=== PATIENT | male | born 1955 | race Caucasian/White ===

== ENCOUNTER 2018-08-08 07:14 | Inpatient (IN) | payer OTHER, MEDICAID, MEDICARE ==
[2018-08-08] MEDS: MORPHINE 2 MG/ML 1ML SYRINGE (J2270) IV (08:19)
[2018-08-08] MEDS: NS 1,000 ML IV ×4 (08:19→20:45)
[2018-08-08] MEDS: ONDANSETRON 4MG/2ML VIAL (J2405) IV (08:19)
[2018-08-08 08:21] LABS: BASO # 0.1 10^3/uL (0.0-0.2); BASO % 0.4 % (0.0-1.0); EOS % 0.2 % (0.0-3.0); HEMATOCRIT 47.8 % (42.0-52.0); HEMOGLOBIN 15.8 g/dl (13.5-17.5); IMMATURE GRANULOCYTE % 0.4 % (0-3.0); LYMPH # 0.6 10^3/uL (1.5-4.5); LYMPH % 3.6 % (24.0-44.0); MEAN CORPUSCULAR HEMOGLOBIN 30.7 pg (27.0-33.0); MEAN CORPUSCULAR HGB CONC 33.1 g/dl (32.0-36.5); MONO % 5.8 % (0.0-5.0); NEUTROPHILS # 14.7 10^3/uL (1.8-7.7); NEUTROPHILS % 89.6 % (36.0-66.0); PLATELET COUNT, AUTOMATED 142 10^3/uL (150-450); RED BLOOD COUNT 5.14 10^6/uL (4.30-6.10); RED CELL DISTRIBUTION WIDTH 12.5 % (11.5-14.5); WHITE BLOOD COUNT 16.4 10^3/uL (4.0-10.0)
[2018-08-08 08:27] LABS: KETONE, URINE AUTO RFX 2+ mg/dL (NEGATIVE); LEUKOCYTE ESTERASE UR AUTO RFX NEGATIVE (NEGATIVE); MUCUS, URINE RFX MODERATE (NEGATIVE); NITRITE, URINE AUTO RFX NEGATIVE (NEGATIVE); RBC, URINE AUTO RFX 2 /HPF (0-3); SPECIFIC GRAVITY UR AUTO RFX 1.024 (1.002-1.035); SQUAM EPITHELIAL CELL UR AURFX 0 /HPF (0-6); WBC, URINE AUTO RFX 1 /HPF (0-3)
[2018-08-08 08:46] LABS: INR 0.96; PROTHROMBIN TIME 12.9 SECONDS (12.1-14.4)
[2018-08-08 08:52] LABS: PARTIAL THROMBOPLASTIN TIME 26.4 SECONDS (25.4-37.6)
[2018-08-08 08:56] LABS: ALBUMIN 3.7 GM/DL (3.2-5.2); ALBUMIN/GLOBULIN RATIO 1.19 (1.00-1.93); ALKALINE PHOSPHATASE 76 U/L (45-117); ALT/SGPT 17 U/L (12-78); AMYLASE 46 U/L (25-115); ANION GAP 9 MEQ/L (8-16); AST/SGOT 11 U/L (7-37); BILIRUBIN,DIRECT 0.3 MG/DL (0.0-0.2); BILIRUBIN,TOTAL 0.7 MG/DL (0.2-1.0); BLOOD UREA NITROGEN 14 MG/DL (7-18); CALCIUM LEVEL 9.1 MG/DL (8.8-10.2); CARBON DIOXIDE LEVEL 28 MEQ/L (21-32); CHLORIDE LEVEL 100 MEQ/L (98-107); CPK CREATINE PHOSPHOKINASE 66 U/L (39-308); GLOMERULAR FILTRATION RATE > 60.0 (>49); GLUCOSE, FASTING 131 MG/DL (70-100); LIPASE 259 U/L (73-393); MB/CK RELATIVE INDEX 2.42 (< OR =4); POTASSIUM SERUM 4.2 MEQ/L (3.5-5.1); SODIUM LEVEL 137 MEQ/L (136-145); TOTAL PROTEIN 6.8 GM/DL (6.4-8.2); TROPONIN I < 0.02 NG/ML (< 0.10)
[2018-08-08 08:58] LABS: LACTIC ACID SEPSIS PROTOCOL 1.4 MMOL/L (0.4-2.0)
[2018-08-08] MEDS ORDERED: ISOVUE-370 76% 100ML VIAL (Q9967) As Ordered (10:02)
[2018-08-08] MEDS: MORPHINE 4 MG/ML 1ML VIAL/SYRINGE (J2270) IV ×3 (10:19→20:45)
[2018-08-08] MEDS ORDERED: ONDANSETRON 4MG/2ML VIAL (J2405) IV (11:15)
[2018-08-08] MEDS: ACETAMINOPHEN TAB 650MG DOSE (2X325MG) PO (14:48)
[2018-08-08] MEDS: ENOXAPARIN 40 MG/0.4 ML SYRINGE (J1650) SC (14:49)
[2018-08-08] MEDS ORDERED: IPRATROPIUM 0.5MG/ALBUTEROL 2.5MG INH SOL UD 3ML (DUONEB)(J7620) NEB (16:15)
[2018-08-08] MEDS: LISINOPRIL 20 MG TAB PO (16:43)
[2018-08-08] MEDS: MONTELUKAST 10 MG TAB PO (16:43)
[2018-08-08] MEDS: ATORVASTATIN 20 MG TAB PO (16:43)
[2018-08-08] MEDS: ALLOPURINOL 300 MG TAB PO (16:43)
[2018-08-08] MEDS: ADVAIR HFA 230/21MCG INHALER INH (20:03)
[2018-08-09] MEDS: SENNA 8.6 MG TAB (SENOKOT) PO (02:48)
[2018-08-09] MEDS: NS 1,000 ML IV ×2 (02:48→08:41)
[2018-08-09] MEDS: MORPHINE 4 MG/ML 1ML VIAL/SYRINGE (J2270) IV ×4 (02:48→20:26)
[2018-08-09 06:33] LABS: HEMATOCRIT 44.6 % (42.0-52.0); HEMOGLOBIN 14.5 g/dl (13.5-17.5); MEAN CORPUSCULAR HGB CONC 32.5 g/dl (32.0-36.5); MEAN CORPUSCULAR VOLUME 95.3 fl (80.0-96.0); PLATELET COUNT, AUTOMATED 129 10^3/uL (150-450); RED BLOOD COUNT 4.68 10^6/uL (4.30-6.10); RED CELL DISTRIBUTION WIDTH 12.6 % (11.5-14.5); WHITE BLOOD COUNT 15.6 10^3/uL (4.0-10.0)
[2018-08-09 07:00] LABS: ANION GAP 4 MEQ/L (8-16); BLOOD UREA NITROGEN 14 MG/DL (7-18); CARBON DIOXIDE LEVEL 33 MEQ/L (21-32); CHLORIDE LEVEL 102 MEQ/L (98-107); CREATININE FOR GFR 0.66 MG/DL (0.70-1.30); GLOMERULAR FILTRATION RATE > 60.0 (>49); GLUCOSE, FASTING 119 MG/DL (70-100); LIPASE 86 U/L (73-393); POTASSIUM SERUM 4.2 MEQ/L (3.5-5.1); SODIUM LEVEL 139 MEQ/L (136-145)
[2018-08-09] MEDS: ADVAIR HFA 230/21MCG INHALER INH ×2 (07:24→20:17)
[2018-08-09 07:31] LABS: ALBUMIN/GLOBULIN RATIO 0.83 (1.00-1.93); ALKALINE PHOSPHATASE 63 U/L (45-117); ALT/SGPT 12 U/L (12-78); AST/SGOT 7 U/L (7-37); BILIRUBIN,DIRECT 0.2 MG/DL (0.0-0.2); BILIRUBIN,TOTAL 0.5 MG/DL (0.2-1.0); TOTAL PROTEIN 6.6 GM/DL (6.4-8.2)
[2018-08-09] MEDS: ENOXAPARIN 40 MG/0.4 ML SYRINGE (J1650) SC (08:41)
[2018-08-09] MEDS: ALLOPURINOL 300 MG TAB PO (08:45)
[2018-08-09] MEDS: LISINOPRIL 20 MG TAB PO (08:45)
[2018-08-09] MEDS: ATORVASTATIN 20 MG TAB PO (08:45)
[2018-08-09] MEDS: PREVNAR 13 VACCINE SYRINGE (CPT CODE:90670) IM (08:49)
[2018-08-09] MEDS: MONTELUKAST 10 MG TAB PO (08:50)
[2018-08-09] MEDS: FLUBLOK(EGG FREE)(QUAD)INFLUENZA VACC 0.5ML SYRINGE (90682)18YRS&OLDER IM (08:50)
[2018-08-10] MEDS: SENNA 8.6 MG TAB (SENOKOT) PO (00:44)
[2018-08-10 06:25] LABS: HEMATOCRIT 45.2 % (42.0-52.0); HEMOGLOBIN 14.7 g/dl (13.5-17.5); MEAN CORPUSCULAR HEMOGLOBIN 30.9 pg (27.0-33.0); MEAN CORPUSCULAR HGB CONC 32.5 g/dl (32.0-36.5); PLATELET COUNT, AUTOMATED 143 10^3/uL (150-450); RED BLOOD COUNT 4.76 10^6/uL (4.30-6.10); RED CELL DISTRIBUTION WIDTH 12.5 % (11.5-14.5); WHITE BLOOD COUNT 11.3 10^3/uL (4.0-10.0)
[2018-08-10 06:52] LABS: ALBUMIN 2.8 GM/DL (3.2-5.2); ALBUMIN/GLOBULIN RATIO 0.72 (1.00-1.93); ALKALINE PHOSPHATASE 62 U/L (45-117); ALT/SGPT 13 U/L (12-78); ANION GAP 4 MEQ/L (8-16); AST/SGOT 10 U/L (7-37); BILIRUBIN,DIRECT 0.2 MG/DL (0.0-0.2); BILIRUBIN,TOTAL 0.6 MG/DL (0.2-1.0); BLOOD UREA NITROGEN 16 MG/DL (7-18); CALCIUM LEVEL 8.8 MG/DL (8.8-10.2); CARBON DIOXIDE LEVEL 36 MEQ/L (21-32); CHLORIDE LEVEL 99 MEQ/L (98-107); CREATININE FOR GFR 0.72 MG/DL (0.70-1.30); GLOMERULAR FILTRATION RATE > 60.0 (>49); GLUCOSE, FASTING 121 MG/DL (70-100); LIPASE 39 U/L (73-393); MAGNESIUM LEVEL 1.9 MG/DL (1.8-2.4); POTASSIUM SERUM 4.4 MEQ/L (3.5-5.1); SODIUM LEVEL 139 MEQ/L (136-145); TOTAL PROTEIN 6.7 GM/DL (6.4-8.2)
[2018-08-10] MEDS: amLODIPine 10 MG TAB PO (08:42)
[2018-08-10] MEDS: ENOXAPARIN 40 MG/0.4 ML SYRINGE (J1650) SC (08:42)
[2018-08-10] MEDS: ATORVASTATIN 20 MG TAB PO (08:42)
[2018-08-10] MEDS: LISINOPRIL 20 MG TAB PO (08:42)
[2018-08-10] MEDS: MONTELUKAST 10 MG TAB PO (08:42)
[2018-08-10] MEDS: ALLOPURINOL 300 MG TAB PO (08:42)
[2018-08-10] MEDS: ADVAIR HFA 230/21MCG INHALER INH ×2 (09:28→19:51)
[2018-08-10] MEDS: ACETAMINOPHEN TAB 650MG DOSE (2X325MG) PO (21:46)
[2018-08-11 07:07] LABS: HEMATOCRIT 46.7 % (42.0-52.0); HEMOGLOBIN 15.1 g/dl (13.5-17.5); MEAN CORPUSCULAR HEMOGLOBIN 30.8 pg (27.0-33.0); MEAN CORPUSCULAR HGB CONC 32.3 g/dl (32.0-36.5); MEAN CORPUSCULAR VOLUME 95.3 fl (80.0-96.0); PLATELET COUNT, AUTOMATED 167 10^3/uL (150-450); RED CELL DISTRIBUTION WIDTH 12.6 % (11.5-14.5); WHITE BLOOD COUNT 6.8 10^3/uL (4.0-10.0)
[2018-08-11] MEDS: ADVAIR HFA 230/21MCG INHALER INH (07:17)
[2018-08-11 07:33] LABS: ANION GAP 6 MEQ/L (8-16); BLOOD UREA NITROGEN 19 MG/DL (7-18); CALCIUM LEVEL 8.8 MG/DL (8.8-10.2); CARBON DIOXIDE LEVEL 34 MEQ/L (21-32); CHLORIDE LEVEL 99 MEQ/L (98-107); GLOMERULAR FILTRATION RATE > 60.0 (>49); GLUCOSE, FASTING 111 MG/DL (70-100); LIPASE 30 U/L (73-393); MAGNESIUM LEVEL 1.9 MG/DL (1.8-2.4); POTASSIUM SERUM 3.6 MEQ/L (3.5-5.1); SODIUM LEVEL 139 MEQ/L (136-145)
[2018-08-11] MEDS: MONTELUKAST 10 MG TAB PO (09:46)
[2018-08-11] MEDS: ATORVASTATIN 20 MG TAB PO (09:46)
[2018-08-11] MEDS: LISINOPRIL 20 MG TAB PO (09:47)
[2018-08-11] MEDS: PERCOCET 5MG/325MG TAB PO (09:47)
[2018-08-11] MEDS: ALLOPURINOL 300 MG TAB PO (09:47)
[2018-08-11] MEDS: amLODIPine 10 MG TAB PO (09:47)
[2018-08-11] MEDS: ENOXAPARIN 40 MG/0.4 ML SYRINGE (J1650) SC (09:48)
== END 2018-08-11 13:29 | disposition home or self-care (01) | DRG 282 ==
LOC: M ED 07:14 → M ED INP 11:07 → M MSPAV 14:03
DX: K85.90 Acute pancreatitis without necrosis or infection, unspecified (principal); J44.9 Chronic obstructive pulmonary disease, unspecified; I10 Essential (primary) hypertension; E78.5 Hyperlipidemia, unspecified; M10.9 Gout, unspecified; F17.210 Nicotine dependence, cigarettes, uncomplicated; Z90.49 Acquired absence of other specified parts of digestive tract; Z92.21 Personal history of antineoplastic chemotherapy; Z92.3 Personal history of irradiation; Z79.1 Long term (current) use of non-steroidal anti-inflammatories (NSAID); Z79.899 Other long term (current) drug therapy; Z85.048 Personal history of other malignant neoplasm of rectum, rectosigmoid junction, and anus

== ENCOUNTER 2019-07-06 09:55 | Emergency (ER) | payer MEDICARE, OTHER ==
[~2019-07-06] VITALS: Ht 185.4 cm; Wt 120.5 kg
[~2019-07-06 09:55] MED LIST: ALBUTEROL INH; ALLO100T OR; AMLO2.5T3 PO; ATOR1TAB21 PO; AVEL1TAB2 OR; BREO1INH INH; BREO1INH PO; CELE1CAP4 OR; COMBVENT INH; LIPI20TA OR; LISI-538 PO; MONT10TA2 PO; NAPR-885 PO; NICO21DI4 TD; PRED10TA2 OR; PRED20TA OR; SKEL800T5 OR; VENTAER INH; ZYLO300T6 PO
[2019-07-06] MEDS ORDERED: LISI40TA (10:03)
[2019-07-06] MEDS ORDERED: TIZA4TAB4 (10:03)
[2019-07-06] MEDS ORDERED: NS 1,000 ML IV SCH (10:36)
[2019-07-06] MEDS ORDERED: ONDANSETRON 4MG/2ML VIAL (J2405) IV ONE (10:45)
[2019-07-06 11:14] LABS: BASO # 0.1 10^3/uL (0.0-0.2); BASO % 0.4 % (0.0-1.0); EOS # 0.1 10^3/uL (0.0-0.5); EOS % 0.7 % (0.0-3.0); HEMATOCRIT 48.4 % (42.0-52.0); HEMOGLOBIN 16.1 g/dl (13.5-17.5); LYMPH # 0.7 10^3/uL (1.5-5.0); LYMPH % 5.8 % (24.0-44.0); MEAN CORPUSCULAR HEMOGLOBIN 31.6 pg (27.0-33.0); MEAN CORPUSCULAR HGB CONC 33.3 g/dl (32.0-36.5); MEAN CORPUSCULAR VOLUME 95.1 fl (80.0-96.0); MONO # 0.7 10^3/uL (0.0-0.8); MONO % 5.6 % (0.0-5.0); NEUTROPHILS # 10.7 10^3/uL (1.5-8.5); NEUTROPHILS % 87.1 % (36.0-66.0); PLATELET COUNT, AUTOMATED 149 10^3/uL (150-450); RED BLOOD COUNT 5.09 10^6/uL (4.30-6.10); WHITE BLOOD COUNT 12.3 10^3/uL (4.0-10.0)
[2019-07-06] MEDS: MORPHINE 4 MG/ML 1ML VIAL/SYRINGE (J2270) IV PRN ×2 (11:22→12:03)
[2019-07-06 11:36] LABS: ALBUMIN 3.5 GM/DL (3.2-5.2); BILIRUBIN,DIRECT 0.2 MG/DL (0.0-0.2); BILIRUBIN,TOTAL 0.6 MG/DL (0.2-1.0); TOTAL PROTEIN 6.5 GM/DL (6.4-8.2)
[2019-07-06] MEDS ORDERED: ISOVUE-370 76% 100ML VIAL (Q9967) As Ordered ONE (11:39)
--- NOTE | 2019-07-06 12:41 | REP ---
CT ABDOMEN AND PELVIS WITH IV WITHOUT ORAL CONTRAST: HISTORY: Abdomen pain. The patient gives a history of colorectal carcinoma status post colon resection. Comparison CT study August 08, 2018. CT CONTRAST DOSE: 100 mL of intravenous Isovue [address] FINDINGS: Preliminary diaper machine tender radiograph shows an unremarkable bowel gas pattern. Lung bases are clear. Liver and spleen remain normal in size homogeneous in texture. No adrenal lesion is seen. The kidneys enhance symmetrically and are morphologically intact. No pancreatic abnormality is visible today. There is a 3.9 cm infrarenal abdominal aortic aneurysm again noted unchanged There is evidence of a colonic anastomosis at the level of the rectum suggesting previous the left colon resection and reanastomosis. There is extensive diverticulosis in the distal left colon and to some degree in the descending colon. There is a prominent new pattern of mural thickening and pericolonic fat streaking affecting the proximal colon from cecum through to the splenic flexure consistent with enterocolitis. There is no evidence of free air or abscess. Small bowel loops are unremarkable. Prostate, seminal vesicles and urinary bladder are unremarkable. IMPRESSION: Moderate new pattern of mural thickening involving the right colon from cecum to the splenic flexure region. Enterocolitis picture. Status post left colon resection. A 3.9 cm infrarenal abdominal aortic aneurysm unchanged. Electronically Signed by Jaswant Hernandes MD 07/06/2019 01:02 P
[2019-07-06 14:00] VITALS: BP 164/89
--- NOTE | 2019-07-06 20:32 | ECGEPIP ---
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
== END 2019-07-06 14:12 | disposition home or self-care (01) ==
LOC: M ED 09:55
DX: K52.9 Noninfective gastroenteritis and colitis, unspecified (principal); I10 Essential (primary) hypertension; E78.5 Hyperlipidemia, unspecified; Z85.048 Personal history of other malignant neoplasm of rectum, rectosigmoid junction, and anus; Z92.21 Personal history of antineoplastic chemotherapy; Z92.3 Personal history of irradiation; F17.200 Nicotine dependence, unspecified, uncomplicated; Z79.899 Other long term (current) drug therapy; Z79.51 Long term (current) use of inhaled steroids; Z79.1 Long term (current) use of non-steroidal anti-inflammatories (NSAID)
CPT/HCPCS: 74177; 80047; 80076; 83690; 85025; 93005; 96361; 96374; 96375; 96376; 99284; J2270; J2405; Q9967

== ENCOUNTER → 2020-08-01 | Outpatient (CLI) | payer MEDICARE, MEDICAID ==
[~2020-08-01] MED LIST changes: +BREO1INH3 INH; +LISI40TA PO; -MONT10TA2 PO; +MONT10TA4 PO; +NORV5TAB PO; +TIZA4TAB4
--- NOTE | 2020-08-06 08:10 | REP ---
CT CHEST WITHOUT CONTRAST: LOW-DOSE SCREENING EXAM HISTORY: Tobacco use. Current smoker. COMPARISON: Chest x-ray from 08/08/2018. No comparison chest CT study. CT FINDINGS: Preliminary digital spray mixer radiograph unremarkable. Exam is positive. There are multiple abnormalities, the most compelling of which is a 4.3 x 2.9 cm spiculated mass adjacent to the posteromedial pleura of the right lower lobe. There is no evidence of pleural effusion. In addition, there are multiple subcentimeter pulmonary nodules. These include a right upper lobe nodule measuring 0.8 cm in diameter in the apex on Page 9 of 103 in Series 201 of todays exam. There is a 3-mm nodule in the left upper lobe on Page 19. There is a 5-mm nodule in the left lower lobe and a 3-mm nodule in the right lower lobe both of which project on Page 30. No other abnormality is appreciated. IMPRESSION: Lung-RADS Category 4X findings. Suspicious right lower lobe lung mass. Recommend PET CT scanning and histologic sampling. This could be done by CT-guided needle biopsy if desired. There are also multiple subcentimeter noncalcified pulmonary nodules bilaterally. MTDD
== END ==
LOC: M RAD 12:48
PROVIDERS: ATTEND Family Medicine
DX: F17.218 Nicotine dependence, cigarettes, with other nicotine-induced disorders (principal); R91.1 Solitary pulmonary nodule

== ENCOUNTER 2021-01-23 07:19 | Inpatient (IN) | payer MEDICARE, MEDICAID ==
[~2021-01-23] VITALS: Ht 185.4 cm; Wt 129.1 kg
[~2021-01-23 07:19] MED LIST changes: -LISI-538 PO; +LISI20TA33 PO; -LISI40TA PO; +LISI40TA4 PO; +MONT10TA10 PO; -MONT10TA4 PO
[2021-01-23] MEDS ORDERED: DOXY100T PO (07:42)
[2021-01-23] MEDS ORDERED: TIZA4TAB4 PO (07:42)
[2021-01-23] MEDS ORDERED: ADVAIR HFA 230/21MCG INHALER INH SCH (08:00)
[2021-01-23] MEDS ORDERED: ISOVUE-370 76% 100ML VIAL As Ordered ONE (08:58)
[2021-01-23 09:04] LABS: APPEARANCE, URINE HAZY (CLEAR); BACTERIA, URINE AUTO NEGATIVE (NEGATIVE); BILIRUBIN, URINE AUTO NEGATIVE (NEGATIVE); BLOOD, URINE BLOOD NEGATIVE (NEGATIVE); COLOR, URINE AMBER (YELLOW); GLUCOSE, URINE (UA) AUTO NEGATIVE (NEGATIVE); KETONE, URINE AUTO NEGATIVE (NEGATIVE); LEUKOCYTE ESTERASE, URINE AUTO NEGATIVE (NEGATIVE); MUCUS, URINE SMALL (NEGATIVE); NITRITE, URINE AUTO NEGATIVE (NEGATIVE); PROTEIN, URINE AUTO 1+ mg/dL (NEGATIVE); RBC, URINE AUTO 2 /HPF (0-3); SPECIFIC GRAVITY URINE AUTO 1.027 (1.002-1.035); SQUAMOUS EPITHELIAL CELL UR AU 0 /HPF (0-6); WBC, URINE AUTO 1 /HPF (0-3)
[2021-01-23 09:07] LABS: BASO # 0.1 10^3/uL (0.0-0.2); BASO % 0.6 % (0.0-1.0); EOS # 0.1 10^3/uL (0.0-0.5); EOS % 0.7 % (0.0-3.0); HEMATOCRIT 49.8 % (42.0-52.0); HEMOGLOBIN 15.6 g/dl (13.5-17.5); LYMPH # 0.7 10^3/uL (1.5-5.0); MEAN CORPUSCULAR HEMOGLOBIN 30.8 pg (27.0-33.0); MEAN CORPUSCULAR HGB CONC 31.3 g/dl (32.0-36.5); MEAN CORPUSCULAR VOLUME 98.4 fl (80.0-96.0); MONO # 0.8 10^3/uL (0.0-0.8); MONO % 9.6 % (2.0-8.0); NEUTROPHILS % 80.8 % (36.0-66.0); PLATELET COUNT, AUTOMATED 128 10^3/uL (150-450); RED BLOOD COUNT 5.06 10^6/uL (4.30-6.10); WHITE BLOOD COUNT 8.7 10^3/uL (4.0-10.0)
--- NOTE | 2021-01-23 09:37 | REP ---
INDICATION: cellulitis ?abscess. COMPARISON: None. TECHNIQUE: Bolus of 75 mL Isovue 370 scanning through the maxillofacial region with coronal and sagittal reconstructions presented in soft tissue and bone window settings. FINDINGS: There is extensive soft tissue swelling in the periorbital soft tissues bilaterally right greater than left. This is all preseptal with the intraconal fat, globes and intraorbital contents all normal. The skin in the supraorbital ridges extending peripherally into the temporal regions shows thickening and edema. I see no subcutaneous emphysema. Some involvement of the malar region infraorbital left greater than right. The patient is edentulous. There is a 2.3 x 2.3 x 1.8 cm mucous retention cyst in the floor the left maxillary antrum with the other sinuses entirely clear. Nasal septal deviation towards the left is noted. The ostiomeatal complexes are patent. There are small Dayron cells bilaterally. Sandra bullosa in the middle turbinates with the right greater than left. Mastoid symmetric and normal. Nasal bones, zygomatic arches, orbital floors, sinus parsons and visualized portions of the skull base unremarkable patient is edentulous. The nasopharyngeal airway, oropharynx and visualized hypopharynx are unremarkable. No abnormal thickening of the adenoid pad. A portion of intracranial contents visualized were unremarkable in the basal cisterns intact. Visualized old lateral 3rd and 4th ventricles are unremarkable there is no cerebellar tonsillar ectopia. Some degenerative changes at the C1-2 articulation of dens and anterior arch of C1 but no destructive lesions or fractures of the craniocervical junction. The pr I had and submandibular glands are unremarkable some scattered small nodes in the neck and anterior cervical chain but no pathologic sized adenopathy. IMPRESSION: 1. Preseptal periorbital cellulitis right greater than left but extending over the super of a ridge for at and into the temporal regions. I do not see definite abscess and there is no subcutaneous air. Intraorbital fat and contents normal. 2. Patient is edentulous and there is a mucous retention cyst in the left maxillary antrum 2.3 x 2.3 x 1.8 cm. Mastoids intact. All the other sinuses are clear. Airway intact. No adenopathy. <Electronically signed by Leander Alas > 01/23/21 0919
[2021-01-23 09:39] LABS: ALBUMIN 3.1 GM/DL (3.2-5.2); ALT/SGPT 15 U/L (12-78); BILIRUBIN,DIRECT < 0.1 MG/DL (0.0-0.2); BILIRUBIN,TOTAL 0.3 MG/DL (0.2-1.0); TOTAL PROTEIN 6.3 GM/DL (6.4-8.2)
[2021-01-23] MEDS ORDERED: VANCOMYCIN HCL 2,000 MG in D5W 500 ML IV ONE (10:05)
[2021-01-23] MEDS ORDERED: VANCOMYCIN HCL 1,000 MG, VIAL MATE ADAPTER 1 EACH in NS 250 ML IV ONE ×6 (10:20)
[2021-01-23] MEDS ORDERED: ACETAMINOPHEN TAB 650MG DOSE (2X325MG) PO PRN (10:25)
[2021-01-23] MEDS ORDERED: ALBUTEROL 90 MCG/ACT 8GM HFA INHALER INH PRN (10:25)
--- NOTE | 2021-01-23 12:08 | HPEPDOC ---
[facility] Medical History & Physical Date of Admission Jan 23, 2021 Date of Service: Jan 23, 2021 Attending Physician: Leslee eDe MD History and Physical CHIEF COMPLAINT: facial swelling HISTORY OF PRESENT ILLNESS: Patient is a 65-year-old male with PMH of rectal cancer status post chemotherapy and radiation (2015), COPD, tobacco use, hyperlipidemia, hypertension, gout history, chronic back pain secondary to degenerative disc disease, osteoarthritis who presented to [facility] emergency room for increased facial cellulitis since 01/18/2021. The patient states he received his first Covid 19 vaccine on 01/16/2021. He had very little postvaccination symptoms only including some left arm muscle pain. That following Wednesday on 01/18/2021 the patient began feeling some tightness behind his left ear. He noted increased redness and swelling which later extended over the last side of the head e xtending towards the 4 head. It eventually made its way to the right side of his face around his right ear and head and around both eyes. He saw his primary care provider on 329 who prescribed him doxycycline. He was compliant with this medication. He states the discomfort associated with this as "like a sunburn" and it being very "tight" and warm to touch. The patient denies seeing any type of lesions on the redness, history of shingles or herpes, exposure to people with recent infection, throat closing, tongue or mouth swelling, shortness of breath, chest pain, itching, oozing, fevers, chills, nausea, vomiting, diarrhea, recent changes in meds, recent change in diet, blurry vision, new detergent or soaps at home. The patient came to the emergency room today as his antibiotics were not seeming to improve his condition and it appeared worse. In the emergency room vital signs were stable. A CT maxillofacial with contrast showed: 1. Preseptal periorbital cellulitis right greater than left but extending over the super of a ridge for at and into the temporal regions, no definite abscess and there is no subcutaneous air. Labs were essentially unremarkable. Patient was started on IV vancomycin. Due to extensive cellulitis failing o/p treatment with oral antibiotics, patient was admitted for facial cellulitis, bilateral preseptal cellulitis requiring IV antibiotic treatment. REVIEW OF SYSTEMS: CONSTITUTIONAL: Denies lack of energy, unexplained weight gain or weight loss, loss of appetite, fever, night sweats EYES: Denies eye drainage, eye pain, visual changes, dry/irritated eye EARS, NOSE, MOUTH, THROAT: Denies difficulty hearing, ringing in ears, mouth sores, loose teeth, sore throat, facial numbness or pain NECK: Denies swollen glands CARDIOVASCULAR: Denies irregular heartbeat, racing heart, chest pains, swelling of feet or legs, pain in legs with walking RESPIRATORY: Denies shortness of breath, night sweats, wheezing, sputum production, oxygen at home, coughing up blood, cough lasting > 1 month GASTROINTESTINAL: Denies abdominal pain, constipation, bloody stool, diarrhea, heartburn, nausea, vomiting GENITOURINARY: Denies painful urination, bloody urine, frequent urination, urgency, leaking urine, impotence MUSCULOSKELETAL: Denies joint pain, muscle pain, leg swelling INTEGUMENTARY: Denies itching, change in existing skin lesion, hair loss or increase, breast changes. NEUROLOGICAL: Denies headaches, dizziness, difficulty walking, numbness or tingling PSYCHIATRIC: Denies depression, anxiety, recurrent bad thoughts, mood swings, hallucinations PAST MEDICAL HISTORY: rectal cancer status post chemotherapy and radiation (2016), COPD, tobacco use, hyperlipidemia, hypertension, gout history, chronic back pain secondary to degenerative disc disease, osteoarthritis PAST SURGICAL HISTORY: Rectal surgery FAMILY HISTORY: Father: liver cirrhosis 2/2 to alcohol use. at 58 y/o Mother: CAD. at 43 y/o SOCIAL HISTORY: Smoker 1 pack per day for 40 years. Patient denies alcohol or drug use. His primary care provider's and [facility]. He follows with a heat treat puller Dr. Gray. He lives alone in the local area and is independent without a walker or cane. He is a full code. ALLERGIES: Please see below. HOME MEDICATIONS: Please see below. PHYSICAL EXAMINATION: VS: Please see below CONSTITUTIONAL: No acute distress, resting comfortably, AAO x 3 EYES: PERRLA, EOM intact, corrective lenses in place HENT, MOUTH: Please see under integumentary. Moist mucous membranes NECK: SUPPLE, no JVD, no lymphadenopathy, no carotid bruit CV: Regular rate and rhythm, S1S2 normal, no murmurs/rubs/gallops RESPIRATORY: Wheezing b/l, mild. no rales/rhonchi GI: BS positive in 4 quadrants, soft, nontender, nondistended, no rebound or guarding, no organomegaly : Deferred MUSCULOSKELETAL: Normal ROM. No cyanosis, clubbing, swelling, joint deformity, extremity edema INTEGUMENTARY: Redness, swelling, skin tightening across forehead, in areas on scalp b/l, behind right and left ear, around right and left eye. Fluid filled bullae under left and right eye, R>L. No open lesions to introduce infection. No lesions on erythematous base. All red areas are warm to touch, nontender. NEUROLOGIC: Cranial Nerves II-XII are intact, no focal deficits PSYCHIATRIC: Mood and affect are normal LABORATORY DATA: Please see below MICROBIOLOGY: BCx x 2 sets ordered UA neg Resp panel: Pending IMAGING: CT maxillofacial: 1. Preseptal periorbital cellulitis right greater than left but extending over the super of a ridge for at and into the temporal regions. I do not see definite abscess and there is no subcutaneous air. Intraorbital fat and contents normal. 2. Patient is edentulous and there is a mucous retention cyst in the left maxillary antrum 2.3 x 2.3 x 1.8 cm. Mastoids intact. All the other sinuses are clear. Airway intact. No adenopathy. ASSESSMENT: 65-year-old male with PMH of rectal cancer status post chemotherapy and radiation (2015), COPD, tobacco use, hyperlipidemia, hypertension, gout hist ory, chronic back pain secondary to degenerative disc disease, osteoarthritis admitted for facial cellulitis, bilateral preseptal cellulitis requiring IV antibiotic treatment. PLAN: Facial cellulitis, bilateral preseptal cellulitis -WBC wnl, afebrile, failed o/p abx treatment with doxycycline with extension of facial cellulitis -Cannot completely rule out reaction to COVID-19 vaccination, as this cellulitis began 2 days after receiving first dose -Not suspecting angioedema, as patient is on ACEi -CT maxillofacial above -BCx pending -C/w vancomycin, asking to outline areas of redness to see if extension. Monitoring closely for new lesions on existing cellulitic areas evolving, increa sed pain/burning or extension into the eye. COPD 2/2 to tobacco use -Mild wheezing on exam, patient states this is his baseline -Currently not suspected to be in exacerbation -C/w home meds, subsituted inhalers Tobacco use -Patient does not wish to have nicotine patch HLD -C/w statin HTN -C/w home meds Gout hx -Stable -C/w home meds Chronic back pain secondary to degenerative disc disease / osteoarthritis -Stable -C/w home naproxen Rectal cancer status post chemotherapy and radiation (2016), rectal surgery -No reoccurrence -F/u with PCP DVT px -Lovenox DISPOSITION: Admitted as acute inpatient. Plan is discharge home when medically improved. Vital Signs Vital Signs Date Time Temp Pulse Resp B/P (MAP) Pulse Ox O2 Delivery O2 Flow Rate FiO2 01/23/21 07:36 01/23/21 07:21 97.4 85 22 96 Room Air Laboratory Data Labs 24H Laboratory Tests 2 01/23/21 08:34: Immature Granulocyte % (Auto) 0.3, Neutrophils (%) (Auto) 80.8H, Lymphocytes (%) (Auto) 8.0L, Monocytes (%) (Auto) 9.6H, Eosinophils (%) (Auto) 0.7, Basophils (%) (Auto) 0.6, Neutrophils # (Auto) 7.0, Lymphocytes # (Auto) 0.7L, Monocytes # (Auto) 0.8, Eosinophils # (Auto) 0.1, Basophils # (Auto) 0.1, Nucleated Red Blood Cells % (auto) 0.0, Urine Color FAUSTO, Urine Appearance HAZY, Urine pH 5.0, Urine Specific [place] 1.027, Urine Protein 1+H, Urine Glucose (Auto)(UA) NEGATIVE, Urine Ketones (Auto) NEGATIVE, Urine Blood NEGATIVE, Urine Nitrite NEGATIVE, Urine Bilirubin NEGATIVE, Urine Urobilinogen 2.0H, Urine Leukocyte Esterase (Auto) NEGATIVE, Urine WBC (Auto) 1, Urine RBC (Auto) 2, Urine Hyaline Casts (Auto) 1, Urine Bacteria (Auto) NEGATIVE, Urine Squamous Epithelial Cells 0, Urine Mucus (Auto) SMALL, Urine Sperm (Auto) , Total Bilirubin 0.3, Direct Bilirubin < 0.1, Aspartate Amino Transf (AST/SGOT) 11, Alanine Aminotransferase (ALT/SGPT) 15, Alkaline Phosphatase 82, Total Protein 6.3L, Albumin 3.1L, Albumin/Globulin Ratio 1.0 01/23/21 08:47: POC Glucose (Misc Panel) 116H, POC Sodium (Misc Panel) 138, POC Potassium (Misc Panel) 4.4, POC Chloride (Misc Panel) 99, POC Total CO2 (Misc Panel) 32.0H, POC Blood Urea Nitrogen (Misc Panel 18, POC Ionized Calcium (Misc Panel) 4.5, POC Creatinine (Misc Panel) 0.7, POC Hematocrit (Misc Panel) 49.0 CBC/BMP Laboratory Tests 01/23/21 08:34 Microbiology Microbiology 01/23/21 Respiratory Virus Panel (PCR) ([facility]), Received Pending Home Medications Scheduled Allopurinol (Zyloprim) 300 Mg Tab, 300 MG PO DAILY Amlodipine Besylate (Norvasc) 5 Mg Tablet, 5 MG PO DAILY Atorvastatin Calcium (Atorvastatin Calcium) 20 Mg Tab, 20 MG PO DAILY Doxycycline Hyclate (Doxycycline Hyclate) 100 Mg Tablet, 100 MG PO BID FOR 10 DAYS, STARTED 01/21 Fluticasone/Vilanterol (Breo Ellipta 200-25 Mcg INH) 1 Each Blst.w.dev, 1 PUFF INH DAILY Lisinopril (Lisinopril) 40 Mg Tablet, 40 MG PO DAILY Naproxen (Naproxen) 500 Mg Tab, 500 MG PO BID Tizanidine HCl (Tizanidine HCl) 4 Mg Tablet, 4 MG PO DAILY Scheduled PRN Albuterol Sulfate (Ventolin Hfa) 108 Mcg/Act Aer, 2 PUFF INH Q4H PRN for SHORTNESS OF BREATH Allergies Coded Allergies: No Known Allergies (Verified , 12/04/10) A-FIB/CHADSVASC A-FIB History Current/History of A-Fib/PAF?: No Current PO Anticoag Therapy: No Age/Risk Factor Scoring CHADSVASC: CHADSVASC Response (Comments) Value Age Risk Factor Age 65-74 years old 1 Gender Risk Factor Male 0 Hx of CHF No 0 Hx of HTN Yes 1 Hx of Stroke/TIA/or VTE No 0 Hx of Diabetes No 0 Hx of Vascular Disease No 0 Total 2 Treatment Treatment ordered: Other Other anticoagulant ordered: Leslee Lin MD Jan 23, 2021 12:08
[2021-01-23 13:00] VITALS: BP 116/77
[2021-01-23] MEDS: allopurinoL 300 MG TAB PO SCH (13:25)
[2021-01-23] MEDS: NAPROXEN 250 MG TAB PO SCH ×2 (13:25→20:46)
[2021-01-23] MEDS: ATORVASTATIN 20 MG TAB PO SCH (13:26)
[2021-01-23] MEDS: amLODIPine 5 MG TAB PO SCH (13:27)
[2021-01-23] MEDS: tiZANidine 4 MG TAB PO SCH (13:27)
[2021-01-23] MEDS: lisinopriL 40 MG TAB PO SCH (13:27)
[2021-01-23] MEDS: ENOXAPARIN 40MG/0.4ML SYRINGE (J1650 PER 10MG) SC SCH (13:39)
[2021-01-23] MEDS: VANCOMYCIN HCL 1,000 MG, VIAL MATE ADAPTER 1 EACH in NS 250 ML IV SCH (18:22)
[2021-01-23] MEDS: ADVAIR HFA 230/21MCG INHALER INH SCH (20:23)
[2021-01-23 22:00] VITALS: BP 125/77
[2021-01-24] MEDS: VANCOMYCIN HCL 1,000 MG, VIAL MATE ADAPTER 1 EACH in NS 250 ML IV SCH (03:25)
[2021-01-24 05:54] LABS: HEMATOCRIT 46.4 % (42.0-52.0); HEMOGLOBIN 14.3 g/dl (13.5-17.5); MEAN CORPUSCULAR HEMOGLOBIN 30.6 pg (27.0-33.0); MEAN CORPUSCULAR HGB CONC 30.8 g/dl (32.0-36.5); MEAN CORPUSCULAR VOLUME 99.1 fl (80.0-96.0); PLATELET COUNT, AUTOMATED 131 10^3/uL (150-450); RED BLOOD COUNT 4.68 10^6/uL (4.30-6.10)
[2021-01-24 06:00] VITALS: BP 116/76
[2021-01-24 06:20] LABS: BLOOD UREA NITROGEN 19 MG/DL (7-18); CALCIUM LEVEL 8.4 MG/DL (8.8-10.2); CARBON DIOXIDE LEVEL 36 MEQ/L (21-32); CHLORIDE LEVEL 107 MEQ/L (98-107); CREATININE FOR GFR 0.68 MG/DL (0.70-1.30); GLOMERULAR FILTRATION RATE > 60.0 (>49); GLUCOSE, FASTING 117 MG/DL (70-100); POTASSIUM SERUM 5.1 MEQ/L (3.5-5.1); SODIUM LEVEL 143 MEQ/L (136-145)
[2021-01-24] MEDS: ADVAIR HFA 230/21MCG INHALER INH SCH ×2 (07:12→20:50)
[2021-01-24] MEDS: NAPROXEN 250 MG TAB PO SCH ×2 (09:22→20:07)
[2021-01-24] MEDS: ATORVASTATIN 20 MG TAB PO SCH (09:23)
[2021-01-24] MEDS: tiZANidine 4 MG TAB PO SCH (09:23)
[2021-01-24] MEDS: allopurinoL 300 MG TAB PO SCH (09:23)
[2021-01-24] MEDS: lisinopriL 40 MG TAB PO SCH (09:24)
[2021-01-24] MEDS: amLODIPine 5 MG TAB PO SCH (09:24)
[2021-01-24] MEDS: ENOXAPARIN 40MG/0.4ML SYRINGE (J1650 PER 10MG) SC SCH (09:25)
[2021-01-24] MEDS ORDERED: LINE1TAB6 PO (11:07)
[2021-01-24] MEDS: POLYVINYL ALCOHOL OPHTH SOLN 15 ML(LIQUITEARS) OU PRN ×2 (11:34→18:21)
[2021-01-24] MEDS: LINEZOLID 600MG TABLET (ZYVOX) PO SCH ×2 (11:34→20:07)
[2021-01-24 14:00] VITALS: BP 118/76
--- NOTE | 2021-01-24 18:28 | IPNPDOC ---
Text Note Date of Service The patient was seen on 01/24/21. NOTE SUBJECTIVE: The patient seen and evaluated this morning, he reports that his facial swelling is significantly improved, essentially all of the erythema across his face and forehead has resolved, he does continue to have significant edema underneath both of his eyes, but is otherwise feeling much better. He denies any fevers, chills, night sweats throughout the night last night. PHYSICAL EXAMINATION: VS: Please see below CONSTITUTIONAL: No acute distress, resting comfortably, AAO x 3 EYES: PERRLA, EOM intact, corrective lenses in place HENT, MOUTH: Please see under integumentary. Moist mucous membranes NECK: SUPPLE, no JVD, no lymphadenopathy, no carotid bruit CV: Regular rate and rhythm, S1S2 normal, no murmurs/rubs/gallops RESPIRATORY: no wheezign, rales/rhonchi GI: BS positive in 4 quadrants, soft, nontender, nondistended, no rebound or guarding, no organomegaly : Deferred MUSCULOSKELETAL: Normal ROM. No cyanosis, clubbing, swelling, joint deformity, extremity edema INTEGUMENTARY: Erythema and edema of the entire face is significantly improved, essentially resolved with the exception of a large amount of edema but is still present in the soft tissue underneath the bilateral eyes. NEUROLOGIC: Cranial Nerves II-XII are intact, no focal deficits PSYCHIATRIC: Mood and affect are normal ASSESSMENT: 65-year-old male with PMH of rectal cancer status post chemotherapy and radiation (2015), COPD, tobacco use, hyperlipidemia, hypertension, gout history, chronic back pain secondary to degenerative disc disease, osteoarthritis admitted for facial cellulitis, bilateral preseptal cellulitis requiring IV antibiotic treatment having failed outpatient therapy with doxycycline. PLAN: Facial cellulitis, bilateral preseptal cellulitis -WBC wnl, afebrile, failed o/p abx treatment with doxycycline with extension of facial cellulitis -Cannot completely rule out reaction to COVID-19 vaccination, as this cellulitis began 2 days after receiving first dose -Not suspecting angioedema, as patient is on ACEi -BCx negative after 24 hours -IV vancomycin seems to be quite effective for him, today will switch him over to PO linezolid, and if he continues to do well will d/c him home with this. Recommended duration of antibiotics is 7-10 days COPD 2/2 to tobacco use -No wheezing today -Currently not suspected to be in exacerbation -C/w home meds, subsituted inhalers Tobacco use -Patient does not wish to have nicotine patch HLD -C/w statin HTN -C/w home meds Gout hx -Stable -C/w home meds Chronic back pain secondary to degenerative disc disease / osteoarthritis -Stable -C/w home naproxen Rectal cancer status post chemotherapy and radiation (2015), rectal surgery -No reoccurrence -F/u with PCP DVT px -Lovenox DISPOSITION: Admitted as acute inpatient. Plan is discharge home when medically improved. VS,Fishbone, I+O VS, Fishbone, I+O Laboratory Tests 01/24/21 05:27 Vital Signs Date Time Temp Pulse Resp B/P (MAP) Pulse Ox O2 Delivery O2 Flow Rate FiO2 01/24/21 14:00 98.8 80 19 118/76 (90) 90 Room Air 01/24/21 09:00 2.0 I&O- Last 24 Hours up to 6 AM 01/24/21 06:00 Intake Total 1940 ml Balance 1940 ml FIONA NUNEZ DO Jan 24, 2021 18:28
[2021-01-24 20:17] VITALS: BP 133/88
[2021-01-25 06:18] VITALS: BP 143/64
[2021-01-25] MEDS: POLYVINYL ALCOHOL OPHTH SOLN 15 ML(LIQUITEARS) OU PRN (06:20)
[2021-01-25 06:43] LABS: HEMATOCRIT 47.2 % (42.0-52.0); HEMOGLOBIN 14.4 g/dl (13.5-17.5); MEAN CORPUSCULAR HEMOGLOBIN 29.8 pg (27.0-33.0); MEAN CORPUSCULAR HGB CONC 30.5 g/dl (32.0-36.5); MEAN CORPUSCULAR VOLUME 97.5 fl (80.0-96.0); PLATELET COUNT, AUTOMATED 147 10^3/uL (150-450); RED BLOOD COUNT 4.84 10^6/uL (4.30-6.10); WHITE BLOOD COUNT 6.9 10^3/uL (4.0-10.0)
[2021-01-25 07:11] LABS: BLOOD UREA NITROGEN 16 MG/DL (7-18); CALCIUM LEVEL 8.9 MG/DL (8.8-10.2); CARBON DIOXIDE LEVEL 32 MEQ/L (21-32); CHLORIDE LEVEL 105 MEQ/L (98-107); GLOMERULAR FILTRATION RATE > 60.0 (>49); GLUCOSE, FASTING 102 MG/DL (70-100); POTASSIUM SERUM 4.5 MEQ/L (3.5-5.1); SODIUM LEVEL 141 MEQ/L (136-145)
[2021-01-25] MEDS: ADVAIR HFA 230/21MCG INHALER INH SCH (07:18)
[2021-01-25] MEDS: ENOXAPARIN 40MG/0.4ML SYRINGE (J1650 PER 10MG) SC SCH (09:00)
[2021-01-25] MEDS: NAPROXEN 250 MG TAB PO SCH (10:03)
[2021-01-25] MEDS: ATORVASTATIN 20 MG TAB PO SCH (10:03)
[2021-01-25] MEDS: tiZANidine 4 MG TAB PO SCH (10:03)
[2021-01-25 10:06] VITALS: BP 133/78
[2021-01-25] MEDS: amLODIPine 5 MG TAB PO SCH (10:06)
[2021-01-25] MEDS: lisinopriL 40 MG TAB PO SCH (10:07)
[2021-01-25] MEDS: allopurinoL 300 MG TAB PO SCH (10:07)
[2021-01-25] MEDS: LINEZOLID 600MG TABLET (ZYVOX) PO SCH (10:07)
--- NOTE | 2021-01-25 18:57 | DS.PDOC ---
Discharge Summary General Date of Admission Jan 23, 2021 at 10:25 Date of Discharge 01/25/2021 Discharge Summary PRIMARY CARE PHYSICIAN: Dr. Kristie Galvan MD ATTENDING AT TIME OF DISCHARGE: Dr. Fiona Aceves, DISCHARGE DIAGNOS(E)S: Facial cellulitis/bilateral preseptal cellulitis With comorbid conditions: COPD (not in exacerbation at this time) Tobacco use Hyperlipidemia Hypertension Gout Chronic back pain secondary to DJD/osteoarthritis History of rectal cancer status post surgery, chemotherapy, and radiation HPI & HOSPITAL COURSE: Patient presented to the emergency department with facial cellulitis having failed outpatient treatment with doxycycline. Maxillofacial CT on admission confirmed preseptal periorbital cellulitis without any definite abscess, subcutaneous air. He was treated with vancomycin, and showed a remarkable improvement within 24 hours. He was switched over to PO linezolid, and continued to show improvement in the following 24 hours., To the point where the celluliti s has essentially resolved, and he just has edema in the soft tissues beneath both eyes. He appears stable for discharge at this time, and will be sent home with an additional 7 days of linezolid. PHYSICAL EXAMINATION ON DISCHARGE: GENERAL: Awake, alert, oriented 3. He still has some areas on his face that appear erythematous, almost as if they had been burned (not so much like the cellulitis he had previously). He still does have edema in the soft tissue noted bilaterally eyes, but this also does appear to be mildly improved from yesterday. CARDIOVASCULAR EXAMINATION: Regular rate and rhythm, with no rubs, gallops, or murmur. RESPIRATORY EXAMINATION: Clear to auscultation bilaterally with no wheezes, rales, or rhonchi. ABDOMINAL EXAMINATION: Soft, nontender, nondistended. Bowel sounds present. EXTREMITIES: No clubbing or edema noted. 2+ pulses in the radial bilaterally. DISPOSITION: Home DISCHARGE INSTRUCTIONS: Follow-up with PCP within 7-14 days. Activity as tolerated. Diet as tolerated. If symptoms return, or if you experience worsening of your symptoms, please call your doctor or return to the emergency department. Vital Signs/I&Os Vital Signs Date Time Temp Pulse Resp B/P (MAP) Pulse Ox O2 Delivery O2 Flow Rate FiO2 01/25/21 10:06 81 133/78 01/25/21 06:18 97.7 20 18 Nasal Cannula 1.0 I&O- Last 24 Hours up to 6 AM 01/25/21 05:59 Intake Total 950 ml Output Total 0 ml Balance 950 ml Laboratory Data Labs 24H Laboratory Tests 2 01/25/21 06:14: Nucleated Red Blood Cells % (auto) 0.0, Anion Gap 4L, Glomerular Filtration Rate > 60.0, Calcium Level 8.9 CBC/BMP Laboratory Tests 01/25/21 06:14 Microbiology Microbiology 01/23/21 Blood Culture - Preliminary, Resulted No Growth after 48 hours. All Specime... 01/23/21 Blood Culture - Preliminary, Resulted No Growth after 48 hours. All Specime... 01/23/21 Respiratory Virus Panel (PCR) ([facility]) - Final, Complete Discharge Medications Scheduled Allopurinol (Zyloprim) 300 Mg Tab, 300 MG PO DAILY, (Reported) Amlodipine Besylate (Norvasc) 5 Mg Tablet, 5 MG PO DAILY, (Reported) Atorvastatin Calcium (Atorvastatin Calcium) 20 Mg Tab, 20 MG PO DAILY, (Reported) Fluticasone/Vilanterol (Breo Ellipta 200-25 Mcg INH) 1 Each Blst.w.dev, 1 PUFF INH DAILY, (Reported) Linezolid (Linezolid) 600 Mg Tablet, 600 MG PO BID Lisinopril (Lisinopril) 40 Mg Tablet, 40 MG PO DAILY, (Reported) Naproxen (Naproxen) 500 Mg Tab, 500 MG PO BID, (Reported) Tizanidine HCl (Tizanidine HCl) 4 Mg Tablet, 4 MG PO DAILY, (Reported) Scheduled PRN Albuterol Sulfate (Ventolin Hfa) 108 Mcg/Act Aer, 2 PUFF INH Q4H PRN for SHORTNESS OF BREATH, (Reported) Allergies Coded Allergies: No Known Allergies (Verified , 12/04/10) FIONA ACEVES DO Jan 25, 2021 18:57
== END 2021-01-25 11:50 | disposition home or self-care (01) | DRG 603 ==
LOC: M ED 07:19 → M ED INP 10:25 → ENRESERV 12:04 → M MS5PR 12:55
PROVIDERS: ADMIT Internal Medicine; ATTEND Neuromusculoskeletal Medicine & OMM
DX: L03.211 Cellulitis of face (principal); L03.213 Periorbital cellulitis; T50.Z95A Adverse effect of other vaccines and biological substances, initial encounter; J44.9 Chronic obstructive pulmonary disease, unspecified; F17.210 Nicotine dependence, cigarettes, uncomplicated; E78.5 Hyperlipidemia, unspecified; I10 Essential (primary) hypertension; M54.9 Dorsalgia, unspecified; M10.9 Gout, unspecified; Z85.048 Personal history of other malignant neoplasm of rectum, rectosigmoid junction, and anus; Z92.3 Personal history of irradiation; Z92.21 Personal history of antineoplastic chemotherapy

== ENCOUNTER → 2021-08-20 | Outpatient (CLI) | payer MEDICARE, MEDICAID ==
[~2021-08-20] MED LIST changes: +DOXY100T PO; +GASTROGRAFIN SOLUTION 30ML (Q9963) ONE; +ISOVUE-370 76% 100ML VIAL ONE; +LINE1TAB6 PO; +TIZA4TAB4 PO
--- NOTE | 2021-08-20 11:40 | REP ---
INDICATION: EVAL FOR METASTATIC DX, HX RECTAL CA. COMPARISON: Multiple the latest 07/06/2019 TECHNIQUE: Standard helical technique after the intravenous administration of 100 cc Isovue 370 and oral bowel preparatory contrast administration. FINDINGS: The liver, gallbladder, spleen, pancreas, adrenal glands, and kidneys are unchanged. There is an unchanged simple right renal cyst. There is an infrarenal abdominal aortic aneurysm which today measures 4.2 cm. Previously, this measured 3.9 cm. There is evidence of bilateral common iliac arterial ectasia status quo. There is descending colon and sigmoid colon diverticulosis status quo. Changes seen on the prior exam consistent with colitis have abated. The bowel loops and the mesenteries are otherwise unremarkable. There is no evidence of a mass or adenopathy. There is no free fluid or free air. Bone window technique throughout the examination shows no significant change in appearance of the imaged osseous structures. There are spinal degenerative changes status quo. There is multilevel discogenic change. IMPRESSION: There is no evidence of acute disease. The infrarenal abdominal aortic aneurysm has increased in size as described above. Other findings as described above. <Electronically signed by Keith Zhang > 08/20/21 [id number]
--- NOTE | 2021-08-20 12:35 | REP ---
INDICATION: EVAL FOR METASTATIC DX, HX RECTAL CA COMPARISON: 08/01/[address] low-dose screening CT examination of the lungs TECHNIQUE: Standard helical technique after the intravenous administration of 100 cc Isovue 370 FINDINGS: There is right hilar adenopathy. This cannot be compared to the prior exam due to the technique utilized in obtaining the prior exam. There are no pleural or pericardial effusions. The imaged upper abdomen and imaged osseous structures are within normal limits. Evaluation of the lung forte shows a 1.1 cm sized spiculated nodule in the right lung apex. This is better imaged using today's standard technique when compared to the prior low-dose screening technique. It appears to have increased in size. There is a large irregular mass in the right lower lobe which measures 5.9 x 4.1 by 5.1 cm. This has increased in size when it previously measured 4.3 x 2.9 cm. There is a small nodule in the left lung apex which is unchanged. There is a new spiculated nodule in the right lower lobe CP angle which measures 1 by 1 cm. There is a stable nodule in the superior segment of the right lower lobe. There are emphysematous changes status quo. IMPRESSION: 1. Lung nodules and right lower lobe lung mass as described. 2. Advanced emphysematous changes. 3. Adenopathy. 4. Other findings as described above. <Electronically signed by Keith Zhang > 08/20/21 [id number]
== END ==
LOC: M PLAIMG 09:12
PROVIDERS: ATTEND Family Medicine
DX: Z85.048 Personal history of other malignant neoplasm of rectum, rectosigmoid junction, and anus (principal)
CPT/HCPCS: 71260; 74177; Q9963; Q9967

== ENCOUNTER 2021-10-03 15:26 | Emergency (ER) | payer MEDICARE, MEDICAID ==
[~2021-10-03] VITALS: Ht 185.4 cm; Wt 128.5 kg
[~2021-10-03 15:26] MED LIST changes: -GASTROGRAFIN SOLUTION 30ML (Q9963) ONE; -ISOVUE-370 76% 100ML VIAL ONE
--- OUTSIDE RECORDS SUMMARY | 2021-10-03 15:36 | CCD ---
Author Author [facility] Organization [facility] Address Unknown Phone Unavailable Care Team Providers Care Stain Maker Name Role Phone [place] Galvan MD Unavailable Unavailable Kristie Galvan MD, [place] Unavailable [phone] Kristie Galvan MD, [place] Unavailable [phone] Kristie Galvan MD, [place] Unavailable [phone] Kristie Galvan MD, ND Unavailable [phone] Kristie Galvan MD, ND Unavailable [phone] Kristie Galvan MD, ND Unavailable [phone] Kristie Galvan MD, ND Unavailable [phone] Kristie Galvan MD, ND Unavailable [phone] Kristie Galvan MD, ND Unavailable [phone] Kristie Galvan MD, ND Unavailable [phone] Kristie Galvan MD, ND Unavailable [phone] Cole MAGANAKristie ND Unavailable + 6 Cole MAGANAKristie ND Unavailable + 6 Cole MAGANA, Kristie ND Unavailable + 6 Cole MAGANA, Kristie ND Unavailable + 6 Cole MAGANA, Kristie ND Unavailable + 6 Cole MAGANA, Kristie ND Unavailable + 6 Cole MAGANA, Kristie ND Unavailable + 6 Cole MAGANA, Kristie ND Unavailable + 6 Cole MAGANA, Kristie ND Unavailable + 6 Cole MAGANA, Kristie ND Unavailable + 6 Cole MAGANA, Kristie ND Unavailable + 6 Cole MAGANA, Kristie ND Unavailable + 6 Cole MAGANA, Kristie ND Unavailable + 6 Cole MAGANATitaly ND Unavailable + 6 Cole MAGANA, Kristie ND Unavailable + 6 Cole MAGANA, Kristie ND Unavailable + 6 Cole MAGANATitaly ND Unavailable + 6 Cole MAGANATitaly ND Unavailable + 6 Cole MAGANA, Kristie ND Unavailable + 6 Cole MAGANA, Kristie ND Unavailable + 6 Cole MAGANA, Kristie ND Unavailable + 6 Cole MAGANA, Kristie ND Unavailable + 6 Charles Gold MD Unavailable Charles Gold MD Unavailable Charles Gold MD Unavailable Charles Gold MD Unavailable Charles Gold MD Unavailable Re-disclosure Warning The records that you are about to access may contain information from federally-assisted alcohol or drug abuse programs. If such information is present, then the following federally mandated warning applies: This information has been disclosed to you from records protected by federal confidentiality rules (42 CFR part 2). The federal rules prohibit you from making any further disclosure of this information unless further disclosure is expressly permitted by the written consent of the person to whom it pertains or as otherwise permitted by 42 CFR part 2. A general authorization for the release of medical or other information is NOT sufficient for this purpose. The Federal rules restrict any use of the information to criminally investigate or prosecute any alcohol or drug abuse patient.The records that you are about to access may contain highly sensitive health information, the redisclosure of which is protected by Article 27-F of the [facility] Public Health law. If you continue you may have access to information: Regarding HIV / AIDS; Provided by facilities licensed or operated by the [facility] Office of Mental Health; or Provided by the [facility] Office for People With Developmental Disabilities. If such information is present, then the following [facility] mandated warning applies: This information has been disclosed to you from confidential records which are protected by state law. State law prohibits you from making any further disclosure of this information without the specific written consent of the person to whom it pertains, or as otherwise permitted by law. Any unauthorized further disclosure in violation of state law may result in a fine or retirement sentence or both. A general authorization for the release of medical or other information is NOT sufficient authorization for further disc losure. Encounters Encounter Providers Location Date Indications Data Source(s ) Outpatient Attender: Kristie Galvan MD ED-HCCDEKPCP 1 12/01/2020 09:32:00 AM EST - 09/30/2021 09:33:00 AM [facility] Patient discharged. Outpatient Attender: Kristie Galvan MDAttender: Kristie Galvan MD ED-HCCDEKPCP 07/24/2021 11:12:00 AM EDT - 07/24/2021 11:13:00 AM EDT [facility] Patient discharged. Outpatient Attender: Kristie Galvan MD ED-HCCDEKPCP 0 07/08/2021 12:49:00 PM EDT - 07/08/2021 12:50:00 PM EDT [facility] Patient discharged. Outpatient Attender: Edy Gold MD CPSCAORT-CPSGNORT 01:42:00 PM EDT - 04/10/2021 01:43:00 PM EDT [facility] Patient discharged. Outpatient Attender: Kristie Galvan MD ED-IMAGH 0 02/20/2021 09:39:00 AM EDT - 02/20/2021 09:40:00 AM EDT PAIN IN RT KNEE [facility] PAIN IN RT KNEE Patient discharged. Outpatient Attender: Kristie Galvan MD ED-IMAG 0 02/17/2021 10:41:00 AM EDT - 02/17/2021 10:42:00 AM EDT [id number] [facility] [id number] Patient discharged. Outpatient Attender: Kristie Galvan MD ED-HCCDEKPCP 0 02/05/2021 10:16:00 AM EDT - 02/05/2021 10:17:00 AM EDT [facility] Patient discharged. Outpatient Attender: Kristie Galvan MD ED-HCCDEKPCP 0 01/21/2021 10:05:00 AM EDT - 01/21/2021 10:06:00 AM EDT [facility] Patient discharged. Outpatient Attender: Kristie Galvan MD ED-HCCDEKPCP 0 01/14/2021 09:49:00 AM EDT - 01/14/2021 09:50:00 AM EDT [facility] Patient discharged. Outpatient Attender: Kristie Galvan MD ED-HCCDEKPCP 1 12/23/2019 09:47:00 AM EST - 10/22/2020 09:48:00 AM [facility] Patient discharged. Outpatient Attender: Kristie Galvan MDAttender: Kristie Galvan MD ED-HCCDEKPCP 08/07/2020 09:39:00 AM EDT - 08/07/2020 09:40:00 AM EDT [facility] Patient discharged. Immunizations Vaccine Date Status Description Data Source(s) COVID-19 VACCINE Moderna 09/10/2021 12:00:00 AM EST completed [facility] Vaccine Series Complete: YESThis Data wa s Submitted to [facility] [employer]. COVID-19 VACCINE Moderna 02/17/2021 12:00:00 AM EDT completed [facility] Vaccine Series Complete: YESThis Data wa s Submitted to [facility] [employer]. COVID-19 VACC,MRNA(MODERNA)/PF 02/17/2021 12:00:00 AM EDT completed [facility] COVID-19 VACCINE, MRNA-1273, LNP-S (MODERNA)/PF 01/18/2021 1 2:00:00 AM EDT completed [facility] COVID-19 VACCINE Moderna 01/16/2021 12:00:00 AM EDT completed [facility] Vaccine Series Complete: NOThis Data was Submitted to [facility] [employer]. Medications Medication Brand Name Start Date Product Form Dose Route Admi nistrative Instructions Pharmacy Instructions Status Indications Reaction Description Data Source(s) 100 mcg/0.5 mL 09/10/2021 12:00:00 AM EST suspension 0 INJECT DIRECTED (THIRD DOSE) INJECT DIRECTED (THIRD DOSE) SOLD: 09/10/2021 [facility] POLYETHYLENE GLYCOL 3350 454561 MG / Pot assium Chloride 2970 MG / Sodium Bicarbonate 6740 MG / Sodium Chloride 5860 MG / sodium sulfate 14859 MG Powder for Oral Solution [Gavilyte-G] 236-22.74-6.74 -5.86 gram ZTV1265/SOD SULF,BICARB,CL/KCL 08/13/2021 12:00:00 AM EDT [facility] [address] QUINN TAKE DIRECTED BY DR QUINN SOLD: 09/04/2021 [facility] montelukast 10 MG Oral Tablet MONTELUKAST SODIUM 08/06/2021 12:0 0:00 AM EDT tablet 90 TAKE ONE TABLET BY MOUTH EVERY D AY TAKE ONE TABLET BY MOUTH EVERY DAY SOLD: 08/07/2021 [facility] tizanidine 4 MG Oral Tablet TIZANIDINE HCL 08/06/2021 12:00:00 AM EDT tablet 90 TAKE ONE TABLET BY MOUTH EVERY DAY TAKE ONE TABLET BY MOUTH EVERY DAY SOLD: 08/07/2021 [facility] 5 mg 08/06/2021 12:00:00 AM EDT tablet 90 TAKE ONE TABLET BY MOUTH EVERY DAY TAKE ONE TABLET BY MOUTH EVERY DAY SOLD: 08/07/2021 [facility] 30 ACTUAT fluticasone furoate 0.1 MG/ACT UAT / vilanterol 0.025 MG/ACTUAT Dry Powder Inhaler [Breo] 100-25 mcg/dose FLUTICASONE/VILANTEROL 08/06/2021 12:00 :00 AM EDT blister with device 180 INHALE 1 PUFF BY MOUT H ONCE DAILY INHALE 1 PUFF BY MOUTH ONCE DAILY SOLD: 08/07/2021 [facility] 500 mg 08/06/2021 12:00:00 AM EDT tablet 180 TAKE TWO TABLETS BY MOUTH EVERY DAY TAKE TWO TABLETS BY MOUTH EVERY DAY SOLD: 08/07/2021 [facility] 40 mg 08/06/2021 12:00:00 AM EDT tablet 90 TAKE ONE TABLET BY MOUTH EVERY DAY TAKE ONE TABLET BY MOUTH EVERY DAY SOLD: 08/07/2021 [facility] Cephalexin 500 MG Oral Capsule CEPHALEXIN 07/08/2021 12:00:00 AM EDT capsule 28 TAKE ONE CAPSULE BY MOUTH FOUR TIMES A DAY FOR 7 DAYS TAKE ONE CAPSULE BY MOUTH FOUR TIMES A DAY FOR 7 DAYS SOLD: 07/10/2021 [facility] 600 mg 01/25/2021 12:00:00 AM EDT tablet 14 TAKE ONE TABLET BY MOUTH TWICE A DAY TAKE ONE TABLET BY MOUTH TWICE A DAY SOLD: 01/25/2021 [facility] doxycycline hyclate 100 MG Oral Tablet DOXYCYCLINE HYCLATE 0 01/21/2021 12:00:00 AM EDT tablet 20 TAKE ONE TABLET BY MOUTH TWI CE A DAY FOR 10 DAYS TAKE ONE TABLET BY MOUTH TWICE A DAY FOR 10 DAYS SOLD: 01/21/2021 [facility] 90 mcg/actuation 01/14/2021 12:00:00 AM EDT HFA aerosol inha ler 54 INHALE TWO PUFFS BY MOUTH EVERY 4 HOURS NEEDED INHALE TWO PUFFS BY MOUTH EVERY 4 HOURS NEEDED SOLD: 01/21/2021 [facility] 40 mg 06/24/2020 12:00:00 AM EDT tablet 90 TAKE ONE TABLET BY MOUTH EVERY DAY TAKE ONE TABLET BY MOUTH EVERY DAY SOLD: 10/02/2020 [facility] 40 mg 06/24/2020 12:00:00 AM EDT tablet 90 TAKE ONE TABLET BY MOUTH EVERY DAY TAKE ONE TABLET BY MOUTH EVERY DAY SOLD: 04/25/2021 [facility] 40 mg 06/24/2020 12:00:00 AM EDT tablet 90 TAKE ONE TABLET BY MOUTH EVERY DAY TAKE ONE TABLET BY MOUTH EVERY DAY SOLD: 01/22/2021 [facility] 300 mg 06/22/2020 12:00:00 AM EDT tablet 90 TAKE ONE TABLET BY MOUTH EVERY DAY TAKE ONE TABLET BY MOUTH EVERY DAY SOLD: 04/25/2021 [facility] tizanidine 4 MG Oral Tablet TIZANIDINE HCL 06/22/2020 12:00:00 AM EDT tablet 90 TAKE ONE TABLET BY MOUTH EVERY DAY TAKE ONE TABLET BY MOUTH EVERY DAY SOLD: 01/22/2021 [facility] atorvastatin 20 MG Oral Tablet ATORVASTATIN CALCIUM 06/22/2020 1 2:00:00 AM EDT tablet 90 TAKE 1 TABLET BY MOUTH ONCE DAILY TAKE 1 TABLET BY MOUTH ONCE DAILY SOLD: 01/22/2021 [facility] tizanidine 4 MG Oral Tablet TIZANIDINE HCL 06/22/2020 12:00:00 AM EDT tablet 90 TAKE ONE TABLET BY MOUTH EVERY DAY TAKE ONE TABLET BY MOUTH EVERY DAY SOLD: 10/02/2020 [facility] 300 mg 06/22/2020 12:00:00 AM EDT tablet 90 TAKE ONE TABLET BY MOUTH EVERY DAY TAKE ONE TABLET BY MOUTH EVERY DAY SOLD: 10/02/2020 [facility] tizanidine 4 MG Oral Tablet TIZANIDINE HCL 06/22/2020 12:00:00 AM EDT tablet 90 TAKE ONE TABLET BY MOUTH EVERY DAY TAKE ONE TABLET BY MOUTH EVERY DAY SOLD: 04/25/2021 [facility] atorvastatin 20 MG Oral Tablet ATORVASTATIN CALCIUM 06/22/2020 1 2:00:00 AM EDT tablet 90 TAKE 1 TABLET BY MOUTH ONCE DAILY TAKE 1 TABLET BY MOUTH ONCE DAILY SOLD: 04/25/2021 [facility] 300 mg 06/22/2020 12:00:00 AM EDT tablet 90 TAKE ONE TABLET BY MOUTH EVERY DAY TAKE ONE TABLET BY MOUTH EVERY DAY SOLD: 01/22/2021 [facility] montelukast 10 MG Oral Tablet MONTELUKAST SODIUM 06/21/2020 12:0 0:00 AM EDT tablet 90 TAKE ONE TABLET BY MOUTH EVERY D AY TAKE ONE TABLET BY MOUTH EVERY DAY SOLD: 01/22/2021 [facility] 100-25 mcg/dose 06/21/2020 12:00:00 AM EDT blister with nima ce 180 INHALE ONE PUFF BY MOUTH ONCE DAILY INHALE ONE PUFF BY MOUTH ONCE DAILY SOLD: 01/22/2021 [facility] 5 mg 06/21/2020 12:00:00 AM EDT tablet 90 TAKE ONE TABLET BY MOUTH EVERY DAY TAKE ONE TABLET BY MOUTH EVERY DAY SOLD: 10/02/2020 [facility] 30 ACTUAT fluticasone furoate 0.1 MG/ACT UAT / vilanterol 0.025 MG/ACTUAT Dry Powder Inhaler [Breo] 100-25 mcg/dose FLUTICASONE/VILANTEROL 06/21/2020 12:00 :00 AM EDT blister with device 180 INHALE ONE PUFF BY MO UTH ONCE DAILY INHALE ONE PUFF BY MOUTH ONCE DAILY SOLD: 04/25/2021 [facility] 5 mg 06/21/2020 12:00:00 AM EDT tablet 90 TAKE ONE TABLET BY MOUTH EVERY DAY TAKE ONE TABLET BY MOUTH EVERY DAY SOLD: 01/22/2021 [facility] 500 mg 06/21/2020 12:00:00 AM EDT tablet 180 TAKE ONE TABLET BY MOUTH TWICE A DAY TAKE ONE TABLET BY MOUTH TWICE A DAY SOLD: 01/22/2021 [facility] 100-25 mcg/dose 06/21/2020 12:00:00 AM EDT blister with nima ce 180 INHALE ONE PUFF BY MOUTH ONCE DAILY INHALE ONE PUFF BY MOUTH ONCE DAILY SOLD: 10/02/2020 [facility] 5 mg 06/21/2020 12:00:00 AM EDT tablet 90 TAKE ONE TABLET BY MOUTH EVERY DAY TAKE ONE TABLET BY MOUTH EVERY DAY SOLD: 04/25/2021 [facility] montelukast 10 MG Oral Tablet MONTELUKAST SODIUM 06/21/2020 12:0 0:00 AM EDT tablet 90 TAKE ONE TABLET BY MOUTH EVERY D AY TAKE ONE TABLET BY MOUTH EVERY DAY SOLD: 10/02/2020 [facility] montelukast 10 MG Oral Tablet MONTELUKAST SODIUM 06/21/2020 12:0 0:00 AM EDT tablet 90 TAKE ONE TABLET BY MOUTH EVERY D AY TAKE ONE TABLET BY MOUTH EVERY DAY SOLD: 04/25/2021 [facility] 500 mg 06/21/2020 12:00:00 AM EDT tablet 180 TAKE ONE TABLET BY MOUTH TWICE A DAY TAKE ONE TABLET BY MOUTH TWICE A DAY SOLD: 10/02/2020 [facility] Insurance Providers Payer name Policy type / Coverage type Policy ID Covered alliance party ID Covered alliance party's relationship to story Policy Story Plan Information [facility] [id number] Self [id number] [facility] I [id number] Self [id number] MEDICAID [id number] S [id number] MEDICARE [id number] S [id number] MEDICAID [id number] S [id number] MEDICARE [id number] S [id number] [place] [id number] SP [id number] [facility] COMMUNITY PLAN [facility] [id number] SP [id number] MEDICAID [id number] MEDICARE C [id number] S [id number] [facility]) O [id number] S [id number] [facility] [id number] SP [id number] [facility] [id number] SP [id number] MEDICARE [id number] SP [id number] MEDICARE [id number] SP [id number] A [facility] [id number] S [id number] [facility] MEDICAID MCD HMO [id number] S [id number] [facility] PLAN [id number] 18 [id number] TRELL [id number] [facility] MEDICAID [id number] SP [id number] MEDICARE [id number] SP [id number] Problems, Conditions, and Diagnoses Code Display Name Description Problem Type Effective Dates Data Source(s) 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, rectosigmoid junction, 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, RECTOSIG JUNCT, AN D ANUS Diagnosis 07/24/2021 11:12:00 AM [facility] Z23 Encounter for immunization ENCOUNTER FOR IMMUNIZATION Diagnosis 07/24/2021 11:12:00 AM [facility] G47.33 Obstructive sleep apnea (adult) (pediatr ic) OBSTRUCTIVE SLEEP APNEA (ADULT) (PEDIATRIC) Diagnosis 07/24/2021 11:12:00 AM [facility] joey S83.511D Sprain of anterior cruciate ligament of right knee, subsequent encounter SPRAIN OF ANTERIOR CRUCIATE LIGAMENT OF RIGHT KNEE, SUBS Leonila gnosis 07/24/2021 11:12:00 AM [facility] E78.5 Hyperlipidemia, unspecified HYPERLIPIDEMIA, UNSPECIFIE D Diagnosis 07/24/2021 11:12:00 AM [facility] I10 Essential (primary) hypertension ESSENTIAL (PRIMARY) H YPERTENSION Diagnosis 07/24/2021 11:12:00 AM [facility] J44.9 Chronic obstructive pulmonary disease, u nspecified CHRONIC OBSTRUCTIVE PULMONARY DISEASE, UNSPECIFIED Diagnosis 07/24/2021 11:12:00 AM [facility] Z00.00 Encounter for general adult medical examination without abnormal findings ENCNTR FOR GENERAL ADULT MEDICAL EXAM W/O ABNORMAL FINDINGS Diagnosis 07/24/2021 11:12:00 AM [facility] L03.115 Cellulitis of right lower limb CELLULITIS OF RIGHT LOW ER LIMB Diagnosis 07/08/2021 12:49:00 PM [facility] Y92.[address] or not applicable UNSPECIFIED PLACE OR NOT APPLICABLE Diagnosis 04/10/2021 01:42:00 PM [facility] X58.XXXA Exposure to other specified factors, ini tial encounter EXPOSURE TO OTHER SPECIFIED FACTORS, INITIAL ENCOUNTER Diagnosis 04/10/2021 01:42: 00 PM [facility] M23.203 Derangement of unspecified m edial meniscus due to old tear or injury, right knee DERANG OF UNSP MEDIAL MENISCUS DUE TO OLD TEAR/INJ, R KNEE D iagnosis 04/10/2021 01:42:00 PM [facility] M17.31 Unilateral post-traumatic osteoarthritis , right knee UNILATERAL POST- TRAUMATIC OSTEOARTHRITIS, RIGHT KNEE Diagnosis 04/10/2021 01:42:00 PM [facility] S83.521A Sprain of posterior cruciate ligament of right knee, initial encounter SPRAIN OF POSTERIOR CRUCIATE LIGAMENT OF RIGHT KNEE, INIT Diagnosis 04/10/2021 01:42:00 PM [facility] S83.511A Sprain of anterior cruciate ligament of right knee, initial encounter SPRAIN OF ANTERIOR CRUCIATE LIGAMENT OF RIGHT KNEE, INIT Diagnosis 04/10/2021 01:42:00 PM [facility] R91.8 Other nonspecific abnormal finding of delmar ng field OTHER NONSPECIFIC ABNORMAL FINDING OF LUNG FIELD Diagnosis 08/07/2020 09:39:00 AM [facility] Surgeries/Procedures Procedure Description Date Indications Data Source(s) Hospital outpatient clinic visit for assessment and ma nagement of a patient Hospital Outpatient Clinic Visit 07/24/2021 12:00:00 AM [facility] COLLECTION VENOUS BLOOD VENIPUNCTURE ROUTINE VENIPUNCTURE 12:00:00 AM [facility] Administration of pneumococcal vaccine 07/24/2021 12:0 0:00 AM [facility] Administration of influenza virus vaccine 07/24/2021 1 2:00:00 AM [facility] BLOOD COUNT COMPLETE AUTO&AUTO DIFRNTL WBC COUNT COMPLETE CB C W/AUTO DIFF WBC 07/24/2021 12:00:00 AM [facility] LIPID PANEL LIPID PANEL 07/24/2021 12:00:00 AM [facility] COMPREHENSIVE METABOLIC PANEL COMPREHEN METABOLIC PANEL 06/27 12:00:00 AM [facility] INFLUENZA VACCINE SPLT PRSRV FREE INC ANTIGEN IM IIV NO PRSV INCREASED AG IM 07/24/2021 12:00:00 AM [facility] PNEUMOCOCCAL CONJ VACCINE 13 VALENT IM PCV13 VACCINE IM 0 07/24/2021 12:00:00 AM [facility] outpatient clinic visit for assessment and ma nagement of a patient Hospital Outpatient Clinic Visit 04/10/2021 12:00:00 AM [facility] PROTHROMBIN TIME PROTHROMBIN TIME 08/07/2020 12:00:00 AM [facility] BASIC METABOLIC PANEL CALCIUM TOTAL METABOLIC PANEL TOTAL CA 08/07/2020 12:00:00 AM [facility] Results ID Date Data Source [id number] 07/24/2021 03:57:00 PM [facility] Name Value Range Interpretation Code Description Data Sarah rce(s) Supporting Document(s) Sodium 141 mmol/L 136-145 Normal (applies to non-numeric resul ts) [facility] Potassium 3.5-5.1 Normal (applies to non-numeric resul ts) [facility] Chloride 103 mmol/L 98-107 Normal (applies to non-numeric resul ts) [facility] Carbon Dioxide CO2 21-32 Above high normal [facility] Anion Gap 5.0-16.0 Normal (applies to non-numeric resul ts) [facility] BUN 15 mg/dL 7-18 Normal (applies to non-numeric results) [facility] Creatinine,Serum 0.8-1.5 Below low normal [facility] GFR >60 Normal (applies to non-numeric results) [facility] Glucose Level 82 mg/dL 60-99 Normal (applies to non-numeric re sults) [facility] Reference range is only applicable when patient is fasting Note the following drug interference: Sulfasalazine Sulfapyridine Can see falsely depressed Can see falsely elevated result with up to 17% results with up to 11% decrease in measurement increase in measurement Recommend patients be collected for this test prior to administration of either drug. Calcium 8.5-10.1 Normal (applies to non-numeric resul ts) [facility] Bilirubin,Total 0.1-1.9 Normal (applies to non-numeric results) [facility] SGOT(AST) 13 U/L 15-37 Below low normal [facility] joey Note the following drug interference: Sulfasalazine Sulfapyridine Can see falsely depressed Can see falsely elevated result with up to 10% results with up to 10% decrease in measurement increase in measurement Recommend patients be collected for this test prior to administration of either drug. SGPT(ALT) 18 U/L 12-78 Normal (applies to non-numeric resul ts) [facility] Note the following drug interference: Sulfasalazine Sulfapyridine Can see falsely depressed Can see falsely elevated result with up to 29% results with up to 10% decrease in measurement increase in measurement Recommend patients be collected for this test prior to administration of either drug. Alkaline Phosphatase 91 U/L 38-126 Normal (applies to non-num maribel results) [facility] can increase Alkaline Phosp le vels up to 2 times the normal adult value. Normal values for children and adolescents are 2 to 3 times the normal adult value. Total Protein 6.0-8.2 Normal (applies to non-numeric re sults) [facility] Albumin Level 3.4-5.0 Normal (applies to non-numeric re sults) [facility] ID Date Data Source [id number] 07/24/2021 03:57:00 PM EDT [facility] Name Value Range Interpretation Code Description Data Sarah rce(s) Supporting Document(s) Triglycerides 38 mg/dL <150 Normal (applies to non-numeric re sults) [facility] Cholesterol 119 mg/dL 100-200 Normal (applies to non-numeric resu lts) [facility] LDL Cholesterol Calculated 77 0-130 Normal (applies to n on-numeric results) [facility] HDL Cholesterol 34 mg/dL 40-60 Below low normal [facility] Cholesterol/HDL Ratio 3.6-6.7 Below low normal [facility] ID Date Data Source [id number] 07/24/2021 03:40:00 PM EDT [facility] Name Value Range Interpretation Code Description Data Sarah rce(s) Supporting Document(s) White Blood Count 3.5-10.5 Normal (applies to non-numeri c results) [facility] Red Blood Count 4.30-5.70 Normal (applies to non-numeric results) [facility] Hemoglobin 13.5-17.5 Normal (applies to non-numeric resul ts) [facility] Hematocrit 38.8-50.0 Normal (applies to non-numeric resul ts) [facility] Mean Corpuscular Volume 81.2-95.1 Above high normal [facility] Mean Corpuscular Hgb 25.6-32.2 Normal (applies to non-num maribel results) [facility] Mean Corpuscular Hgb Conc 32.0-36.0 Below low normal [facility] Red Cell Distribution Width 11.8-15.6 Normal (appli es to non-numeric results) [facility] Platelet Count 155 x10 3/uL 150-450 Normal (applies to non-numeric results) [facility] Mean Platelet Volume 9.4-12.4 Normal (applies to non-num marible results) [facility] Neutrophils% (Auto) 31.0-71.0 Above high normal [facility] Lymphocytes% (Auto) 20.0-55.0 Below low normal [facility] Monocytes% (Auto) 4.0-12.0 Normal (applies to non-numeri c results) [facility] Eosinophils% (Auto) 1.0-8.0 Normal (applies to non-nume karmen results) [facility] Basophils% (Auto) 0.0-2.0 Normal (applies to non-numeri c results) [facility] Immature Granulocytes% (Auto) 0.0-2.0 Normal (ed lies to non-numeric results) [facility] Neutrophils# (Auto) 1.50-8.50 Normal (applies to non-nume karmen results) [facility] Lymphocytes# (Auto) 1.20-4.00 Below low normal [facility] Monocytes# (Auto) 0.00-0.90 Normal (applies to non-numeri c results) [facility] Eosinophils# (Auto) 0.00-0.50 Normal (applies to non-nume karmen results) [facility] Basophils# (Auto) 0.00-0.20 Normal (applies to non-numeri c results) [facility] Immature Granulocytes# (Auto) 0.00-7.00 No rmal (applies to non-numeric results) [facility] ID Date Data Source [id number] 02/21/2021 10:31:[address] [facility] Imaging Services Department Imaging Report [address], [place] [address] %(RAD)RES..mtdd.print.filter("line") Name: FIONA SOFIA : 1955 Age/Sex: 65M Ordering Provider: Kristie Galvan MD Med Rec #: [id number] Reg Status: DEP REF Room #: Date of Service: 02/20/21 Report Number: [id number] cc:Kristie Galvan MD Send Report To: [id number] MRI/MRI Knee Rt No Contrast Reason for exam: PAIN IN RT KNEE Comparison is made to x-ray 02/17/2021 FINDINGS: The ACL is torn. There is partial tear of the PCL. The medial and lateral collateral ligaments are intact. Quadriceps and patellar tendon unremarkable. Joint effusion. Medial meniscal tear posterior horn. Lateral meniscal tear posterior horn. No abnormal marrow signal. IMPRESSION: Torn ACL. Partial tear PCL. Medial meniscal tear posterior horn. Lateral meniscal tear posterior horn. Joint effusion. Time portable performed: Fluoroscopy time in seconds: Number of Exposures: Contrast Agent in ml: Method of Administration: REPORT SIGNATURE ON FILE Reported By: Anselmo Sidhu DO <Electronically signed by Anselmo Sidhu DO> 02/21/21 1327 Dictation Date/Time: 02/20/21 1401 Transcribed Date/Time: 02/21/21 1031 Coat Joiner: KARAN Name Value Range Interpretation Code Description Data Sarah rce(s) Supporting Document(s) ID Date Data Source [id number] 02/17/2021 12:59:[address] [facility] Imaging Services Department Imaging Report [address], [place] [address] %(RAD)RES..mtdd.print.filter("line") Name: FIONA SOFIA : 1955 Age/Sex: 65M Ordering Provider: Kristie Galvan MD Med Rec #: [id number] Reg Status: [facility] REF Room #: Date of Service: 02/17/21 Report Number: [id number] cc:Kristie Galvna MD Send Report To: [id number] XRP/XR Knee Rt Min. 4 Views Reason for exam: RT KNEE PAIN FINDINGS: No fracture or dislocation is identified. There is moderate to severejoint space narrowing at the medial compartment of the knee and moderate at the lateral compartment. There is mild joint space narrowing at the patellofemoral joint. There is moderate spurring at the medial and lateral compartments of theknee and mild to moderate at the patella. No suspicious osseous lesion is seen. There is no joint effusion. IMPRESSION: NO FRACTURE/DISLOCATION. MODERATE DJD. Time portable performed: Fluoroscopy time in seconds: Number of Exposures: Contrast Agent in ml: Method of Administration: REPORT SIGNATURE ON FILE Reported By: Ishmael Monzon MD <Electronically signed by Ishmael Monzon MD> 02/18/21 1153 Dictation Date/Time: 02/17/21 1052 Transcribed Date/Time: 02/17/21 1259 Coat Joiner: [email or web address] Name Value Range Interpretation Code Description Data Sarah rce(s) Supporting Document(s) ID Date Data Source [id number] 01/23/2021 10:51:00 AM EDT [facility] Name Value Range Interpretation Code Description Data Sarah rce(s) Supporting Document(s) SARS-CoV-2 (COVID 19) NEGATIVE - SARS-CoV-2 (COVID19) [facility] This lab was ordered by [facility] a nd reported by [facility]. ID Date Data Source [id number] 08/07/2020 04:28:00 PM EDT [facility] Name Value Range Interpretation Code Description Data Sarah rce(s) Supporting Document(s) PT 9.2-11.7 Normal (applies to non-numeric results) [facility] INR Normal (applies to non-numeric results) [facility] The use of INR is restricted to patients on stable oral anticoagulant. Therapeutic Range: 2.0 - 3.0 High Risk Range: 2.5 - 3.5 ID Date Data Source [id number] 08/07/2020 04:02:00 PM EDT [facility] Name Value Range Interpretation Code Description Data Sarah rce(s) Supporting Document(s) Sodium 137 mmol/L 136-145 Normal (applies to non-numeric resul ts) [facility] Potassium 3.5-5.1 Normal (applies to non-numeric resul ts) [facility] Chloride 98 mmol/L 98-107 Normal (applies to non-numeric resul ts) [facility] Carbon Dioxide CO2 21-32 Above high normal [facility] Anion Gap 5.0-16.0 Normal (applies to non-numeric resul ts) [facility] BUN 14 mg/dL 7-18 Normal (applies to non-numeric results) [facility] Creatinine,Serum 0.8-1.5 Normal (applies to non-numeric results) [facility] GFR >60 Normal (applies to non-numeric results) [facility] Glucose Level 93 mg/dL 60-99 Normal (applies to non-numeric re sults) [facility] Reference range is only applicable when patient is fasting Note the following drug interference: Sulfasalazine Sulfapyridine Can see falsely depressed Can see falsely elevated result with up to 17% results with up to 11% decrease in measurement increase in measurement Recommend patients be collected for this test prior to administration of either drug. Calcium 8.5-10.1 Normal (applies to non-numeric resul ts) [facility] ID Date Data Source [id number] 08/07/2020 04:01:00 PM EDT [facility] Name Value Range Interpretation Code Description Data Sarah rce(s) Supporting Document(s) White Blood Count 3.5-10.5 Normal (applies to non-numeri c results) [facility] Red Blood Count 4.30-5.70 Normal (applies to non-numeric results) [facility] Hemoglobin 13.5-17.5 Normal (applies to non-numeric resul ts) [facility] Hematocrit 38.8-50.0 Normal (applies to non-numeric resul ts) [facility] Mean Corpuscular Volume 81.2-95.1 Above high normal [facility] Mean Corpuscular Hgb 25.6-32.2 Normal (applies to non-num maribel results) [facility] Mean Corpuscular Hgb Conc 32.0-36.0 Below low normal [facility] Red Cell Distribution Width 11.8-15.6 Normal (appli es to non-numeric results) [facility] Platelet Count 173 x10 3/uL 150-450 Normal (applies to non-numeric results) [facility] Mean Platelet Volume 9.4-12.4 Normal (applies to non-num maribel results) [facility] Neutrophils% (Auto) 31.0-71.0 Above high normal [facility] Lymphocytes% (Auto) 20.0-55.0 Below low normal [facility] Monocytes% (Auto) 4.0-12.0 Normal (applies to non-numeri c results) [facility] Eosinophils% (Auto) 1.0-8.0 Normal (applies to non-nume karmen results) [facility] Basophils% (Auto) 0.0-2.0 Normal (applies to non-numeri c results) [facility] Immature Granulocytes% (Auto) 0.0-2.0 Normal (ed lies to non-numeric results) [facility] Neutrophils# (Auto) 1.50-6.20 Above high normal [facility] Lymphocytes# (Auto) 1.20-4.00 Normal (applies to non-nume karmen results) [facility] Monocytes# (Auto) 0.00-0.90 Normal (applies to non-numeri c results) [facility] Eosinophils# (Auto) 0.00-0.50 Normal (applies to non-nume karmen results) [facility] Basophils# (Auto) 0.00-0.20 Normal (applies to non-numeri c results) [facility] Immature Granulocytes# (Auto) 0.00-7.00 No rmal (applies to non-numeric results) [facility] Procedure Social History No Information
[2021-10-03] MEDS ORDERED: methylPREDNISolone 125MG 2ML VIAL IV ONE (16:20)
[2021-10-03] MEDS ORDERED: GI COCKTAIL 50ML BTL(HYOSCYAMINE/MAALOX/LIDOCAINE VISCOUS)(1:3:1) PO ONE (16:20)
[2021-10-03] MEDS ORDERED: ISOVUE-370 76% 100ML VIAL As Ordered ONE (16:55)
[2021-10-03 16:56] LABS: BASO # 0.1 10^3/uL (0.0-0.2); BASO % 0.6 % (0.0-1.0); EOS # 0.1 10^3/uL (0.0-0.5); EOS % 1.5 % (0.0-3.0); HEMATOCRIT 45.4 % (42.0-52.0); HEMOGLOBIN 14.5 g/dl (13.5-17.5); LYMPH # 0.9 10^3/uL (1.5-5.0); LYMPH % 9.5 % (24.0-44.0); MEAN CORPUSCULAR HEMOGLOBIN 30.8 pg (27.0-33.0); MEAN CORPUSCULAR HGB CONC 31.9 g/dl (32.0-36.5); MEAN CORPUSCULAR VOLUME 96.4 fl (80.0-96.0); MONO # 0.5 10^3/uL (0.0-0.8); NEUTROPHILS # 7.7 10^3/uL (1.5-8.5); NEUTROPHILS % 82.9 % (36.0-66.0); PLATELET COUNT, AUTOMATED 150 10^3/uL (150-450); RED BLOOD COUNT 4.71 10^6/uL (4.30-6.10); WHITE BLOOD COUNT 9.3 10^3/uL (4.0-10.0)
--- NOTE | 2021-10-03 17:10 | REP ---
INDICATION: CHEST PAIN. COMPARISON: 08/08/2018. TECHNIQUE: Single portable AP view of the chest was performed. FINDINGS: There is cardiomegaly and chronic venous hypertension.There is no definite acute infiltrate. The mediastinal silhouette is unchanged. There is elevation of the right hemidiaphragm. IMPRESSION: No evidence of acute infiltrate. Cardiomegaly. <Electronically signed by Shekhar Singh > 10/03/21 [id number]
[2021-10-03 17:19] LABS: ALBUMIN 3.7 GM/DL (3.2-5.2); ALT/SGPT 18 U/L (12-78); BILIRUBIN,DIRECT 0.2 MG/DL (0.0-0.2); BILIRUBIN,TOTAL 0.5 MG/DL (0.2-1.0); BLOOD UREA NITROGEN 15 MG/DL (7-18); C REACTIVE PROTEIN QUANTITATIV 0.55 MG/DL (0.00-0.30); CALCIUM LEVEL 9.1 MG/DL (8.8-10.2); CARBON DIOXIDE LEVEL 33 MEQ/L (21-32); CHLORIDE LEVEL 103 MEQ/L (98-107); CREATININE FOR GFR 0.73 MG/DL (0.70-1.30); GLOMERULAR FILTRATION RATE > 60.0 (>49); GLUCOSE, FASTING 147 MG/DL (70-100); LIPASE 47 U/L (73-393); POTASSIUM SERUM 4.1 MEQ/L (3.5-5.1); SODIUM LEVEL 140 MEQ/L (136-145); TOTAL PROTEIN 6.8 GM/DL (6.4-8.2)
[2021-10-03 18:08] LABS: ERYTHROCYTE SEDIMENTATION RATE 17 mm/hr (0-20)
--- OUTSIDE RECORDS SUMMARY | 2021-10-03 18:09 | CCD ---
Author Author [facility] Organization [facility] Address Unknown Phone Unavailable Care Team Providers Care Hearing Screener Name Role Phone [place] Galvan MD Unavailable Unavailable Kristie Galvan MD, [place] Unavailable [phone] Kristie Galvan MD, [place] Unavailable [phone] Kristie Galvan MD, [place] Unavailable [phone] Kristie Galvan MD, [place] Unavailable [phone] Kristie Galvan MD, [place] Unavailable [phone] Kristie Galvan MD, [place] Unavailable [phone] Kristie Galvan MD, [place] Unavailable [phone] Kristie Galvan MD, ND Unavailable [phone] Kristie Galvan MD, ND Unavailable [phone] Kristie Galvan MD, ND Unavailable [phone] Kristie Galvan MD, ND Unavailable [phone] Cole MAGANAKristie ND Unavailable + 6 Cole MAGANAKristie ND Unavailable + 6 Cole MAGANA, Kristie ND Unavailable + 6 Cole MAGANA, Rkistie ND Unavailable + 6 Cole MAGANA, Kristie [...] is protected by Article 27-F of the [facility] Public Health law. If you continue you may have access to information: Regarding HIV / AIDS; Provided by facilities licensed or operated by the [facility] Office of Mental Health; or Provided by the [facility] Office for People With Developmental Disabilities. If such information is present, then the following [facility] mandated warning applies: This information has been [...] law may result in a fine or correction sentence or both. A general authorization for the release of medical or other information is NOT sufficient authorization for further disc losure. Encounters Encounter Providers Location Date Indications Data Source(s ) Outpatient Attender: Kristie Galvan MD ED-HCCDEKPCP 1 12/01/2020 09:32:00 AM EST - 09/30/2021 09:33:00 AM [facility] Patient discharged. Outpatient Attender: Kristie Galvan MDAttender: Kristie Galvan MD ED-HCCDEKPCP 07/24/2021 11:12:00 AM EDT - 07/24/2021 11:13:00 AM EDT [facility] Patient discharged. Outpatient Attender: Kristie Galvan MD ED-HCCDEKPCP 0 07/08/2021 12:49:00 PM EDT - 07/08/2021 12:50:00 PM EDT [facility] Patient discharged. Outpatient Attender: Edy Gold MD CPSCAORT-CPSGNORT 01:42:00 PM EDT - 04/10/2021 01:43:00 PM EDT [facility] Patient discharged. Outpatient Attender: Kristie Galvan MD ED-IMAGH 0 02/20/2021 09:39:00 AM EDT - 02/20/2021 09:40:00 AM EDT PAIN IN RT KNEE [facility] PAIN IN RT KNEE Patient discharged. Outpatient Attender: Kristie Galvan MD ED-IMAG 0 02/17/2021 10:41:00 AM EDT - 02/17/2021 10:42:00 AM EDT [id number] [facility] [id number] Patient discharged. Outpatient Attender: Kristie Galvan MD ED-HCCDEKPCP 0 02/05/2021 10:16:00 AM EDT - 02/05/2021 10:17:00 AM EDT [facility] Patient discharged. Outpatient Attender: Kristie Galvan MD ED-HCCDEKPCP 0 01/21/2021 10:05:00 AM EDT - 01/21/2021 10:06:00 AM EDT [facility] Patient discharged. Outpatient Attender: Kristie Galvan MD ED-HCCDEKPCP 0 01/14/2021 09:49:00 AM EDT - 01/14/2021 09:50:00 AM EDT [facility] Patient discharged. Outpatient Attender: Kristie Galvan MD ED-HCCDEKPCP 1 12/23/2019 09:47:00 AM EST - 10/22/2020 09:48:00 AM [facility] Patient discharged. Outpatient Attender: Kristie Galvan MDAttender: Kristie Galvan MD ED-HCCDEKPCP 08/07/2020 09:39:00 AM EDT - 08/07/2020 09:40:00 AM EDT [facility] Patient discharged. Immunizations Vaccine Date Status Description Data Source(s) COVID-19 VACCINE Moderna 09/10/2021 12:00:00 AM EST completed [facility] Vaccine Series Complete: YESThis Data wa s Submitted to [facility] Via [employer]. COVID-19 VACCINE Moderna 02/17/2021 12:00:00 AM EDT completed [facility] Vaccine Series Complete: YESThis Data wa s Submitted to [facility] [employer]. COVID-19 VACC,MRNA(MODERNA)/PF 02/17/2021 12:00:00 AM EDT completed [facility] COVID-19 VACCINE, MRNA-1273, LNP-S (MODERNA)/PF 01/18/2021 1 2:00:00 AM EDT completed [facility] COVID-19 VACCINE Moderna 01/16/2021 12:00:00 AM EDT completed [facility] Vaccine Series Complete: NOThis Data was Submitted to [facility] [employer]. Medications Medication Brand Name Start Date Product Form Dose Route Admi nistrative Instructions Pharmacy Instructions Status Indications Reaction Description Data Source(s) 100 mcg/0.5 mL 09/10/2021 12:00:00 AM EST suspension 0 INJECT DIRECTED (THIRD DOSE) INJECT DIRECTED (THIRD DOSE) SOLD: 09/10/2021 [facility] POLYETHYLENE GLYCOL 3350 [id number] MG / Pot assium Chloride 2970 MG / Sodium Bicarbonate 6740 MG / Sodium Chloride 5860 MG / sodium sulfate 87956 MG Powder for Oral Solution [Gavilyte-G] 236-22.74-6.74 -5.86 gram EBM0560/SOD SULF,BICARB,CL/KCL 08/13/2021 12:00:00 AM EDT recon soln [...] type / Coverage type Policy ID Covered democrat ID Covered democrat's relationship to story Policy Story Plan Information [facility] [id number] Self [id number] [facility] I [id number] Self [id number] MEDICAID [id number] S [id number] MEDICARE [id number] S [id number] [id number] MEDICAID [id number] MEDICARE [id number] S [id number] [id number] [place] [id number] SP [id number] FORMERLY [facility] [id number] SP [id number] MEDICAID [id number] MEDICARE C [id number] S [id number] [facility]) O [id number] S [id number] [facility] [id number] SP [id number] [facility] [id number] SP [id number] MEDICARE [id number] SP [id number] MEDICARE [id number] SP [id number] A [facility] [id number] S [id number] [facility] MEDICAID [id number] HMO [id number] S [id number] [facility] PLAN [id number] 18 [id number] TRELL [id number] [facility] MEDICAID [id number] SP [id number] C [id number] MEDICARE [id number] SP [id number] Problems, Conditions, and Diagnoses Code Display Name Description Problem Type Effective Dates Data Source(s) 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, rectosigmoid junction, 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, RECTOSIG JUNCT, AN D ANUS Diagnosis 07/24/2021 11:12:00 AM [facility] Z23 Encounter for immunization ENCOUNTER FOR IMMUNIZATION Diagnosis 07/24/2021 11:12:00 AM [facility] G47.33 Obstructive sleep apnea (adult) (pediatr ic) OBSTRUCTIVE SLEEP APNEA (ADULT) (PEDIATRIC) Diagnosis 07/24/2021 11:12:00 AM [facility] joey S83.511D Sprain of anterior cruciate ligament of right knee, subsequent encounter SPRAIN OF ANTERIOR CRUCIATE LIGAMENT OF RIGHT KNEE, SUBS Leonila gnosis 07/24/2021 11:12:00 AM [facility] E78.5 Hyperlipidemia, unspecified HYPERLIPIDEMIA, UNSPECIFIE D Diagnosis 07/24/2021 11:12:00 AM [facility] I10 Essential (primary) hypertension ESSENTIAL (PRIMARY) H YPERTENSION Diagnosis 07/24/2021 11:12:00 AM [facility] J44.9 Chronic obstructive pulmonary disease, u nspecified CHRONIC OBSTRUCTIVE PULMONARY DISEASE, UNSPECIFIED Diagnosis 07/24/2021 11:12:00 AM [facility] Z00.00 Encounter for general adult medical examination without abnormal findings ENCNTR FOR GENERAL ADULT MEDICAL EXAM W/O ABNORMAL FINDINGS Diagnosis 07/24/2021 11:12:00 AM [facility] L03.115 Cellulitis of right lower limb CELLULITIS OF RIGHT LOW ER LIMB Diagnosis 07/08/2021 12:49:00 PM [facility] Y92.[address] or not applicable UNSPECIFIED PLACE OR NOT APPLICABLE Diagnosis 04/10/2021 01:42:[address] [facility] X58.XXXA Exposure to other specified factors, ini tial encounter EXPOSURE TO OTHER SPECIFIED FACTORS, INITIAL ENCOUNTER Diagnosis 04/10/2021 01:42: [address] [facility] M23.203 Derangement of unspecified m edial meniscus due to old tear or injury, right knee DERANG OF UNSP MEDIAL MENISCUS DUE TO OLD TEAR/INJ, R KNEE D iagnosis 04/10/2021 01:42:[address] 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 S83.521A Sprain of posterior cruciate ligament of right knee, initial encounter SPRAIN OF POSTERIOR CRUCIATE LIGAMENT OF RIGHT KNEE, INIT Diagnosis 04/10/2021 01:42:[address] [facility] S83.511A Sprain of anterior cruciate ligament of right knee, initial encounter SPRAIN OF ANTERIOR CRUCIATE LIGAMENT OF RIGHT KNEE, INIT Diagnosis 04/10/2021 01:42:[address] [facility] R91.8 Other nonspecific abnormal finding of delmar ng field OTHER NONSPECIFIC ABNORMAL FINDING OF LUNG FIELD Diagnosis 08/07/2020 09:39:00 AM [facility] Surgeries/Procedures Procedure Description Date Indications Data Source(s) Hospital outpatient clinic visit for assessment and ma nagement of a patient Hospital Outpatient Clinic Visit 07/24/2021 12:00:00 AM [facility] COLLECTION VENOUS BLOOD VENIPUNCTURE ROUTINE VENIPUNCTURE 12:00:00 AM [facility] Administration of pneumococcal vaccine 07/24/2021 12:0 0:00 AM [facility] Administration of influenza virus vaccine 07/24/2021 1 2:00:00 AM [facility] BLOOD COUNT COMPLETE AUTO&AUTO DIFRNTL WBC COUNT COMPLETE CB C W/AUTO DIFF WBC 07/24/2021 12:00:00 AM [facility] LIPID PANEL LIPID PANEL 07/24/2021 12:00:00 AM [facility] COMPREHENSIVE METABOLIC PANEL COMPREHEN METABOLIC PANEL 06/27 12:00:00 AM [facility] INFLUENZA VACCINE SPLT PRSRV FREE INC ANTIGEN IM IIV NO PRSV INCREASED AG IM 07/24/2021 12:00:00 AM [facility] PNEUMOCOCCAL CONJ VACCINE 13 VALENT IM PCV13 VACCINE IM 0 07/24/2021 12:00:00 AM [facility] outpatient clinic visit for assessment and ma nagement of a patient Hospital Outpatient Clinic Visit 04/10/2021 12:00:[address] [facility] PROTHROMBIN TIME PROTHROMBIN TIME 08/07/2020 12:00:00 AM [facility] BASIC METABOLIC PANEL CALCIUM TOTAL METABOLIC PANEL TOTAL CA 08/07/2020 12:00:00 AM [facility] Results ID Date Data Source [id number] 07/24/2021 03:57:00 PM [facility] Name Value Range Interpretation Code Description Data Sarah rce(s) Supporting Document(s) Sodium 141 mmol/L 136-145 Normal (applies to non-numeric resul ts) [facility] Potassium 3.5-5.1 Normal (applies to non-numeric resul ts) [facility] Chloride 103 mmol/L 98-107 Normal (applies to non-numeric resul ts) [facility] Carbon Dioxide CO2 21-32 Above high normal [facility] Anion Gap 5.0-16.0 Normal (applies to non-numeric resul ts) [facility] BUN 15 mg/dL 7-18 Normal (applies to non-numeric results) [facility] Creatinine,Serum 0.8-1.5 Below low normal [facility] GFR >60 Normal (applies to non-numeric results) [facility] Glucose Level 82 mg/dL 60-99 Normal (applies to non-numeric re sults) [facility] Reference range is only applicable when patient is fasting Note the following drug interference: Sulfasalazine Sulfapyridine Can see falsely depressed Can see falsely elevated result with up to 17% results with up to 11% decrease in measurement increase in measurement Recommend patients be collected for this test prior to administration of either drug. Calcium 8.5-10.1 Normal (applies to non-numeric resul ts) [facility] Bilirubin,Total 0.1-1.9 Normal (applies to non-numeric results) [facility] SGOT(AST) 13 U/L 15-37 Below low normal [facility] joey Note the following drug interference: Sulfasalazine Sulfapyridine Can see falsely depressed Can see falsely elevated result with up to 10% results with up to 10% decrease in measurement increase in measurement Recommend patients be collected for this test prior to administration of either drug. SGPT(ALT) 18 U/L 12-78 Normal (applies to non-numeric resul ts) [facility] Note the following drug interference: Sulfasalazine Sulfapyridine Can see falsely depressed Can see falsely elevated result with up to 29% results with up to 10% decrease in measurement increase in measurement Recommend patients be collected for this test prior to administration of either drug. Alkaline Phosphatase 91 U/L 38-126 Normal (applies to non-num maribel results) [facility] can increase Alkaline Phosp le vels up to 2 times the normal adult value. Normal values for children and adolescents are 2 to 3 times the normal adult value. Total Protein 6.0-8.2 Normal (applies to non-numeric re sults) [facility] Albumin Level 3.4-5.0 Normal (applies to non-numeric re sults) [facility] ID Date Data Source [id number] 07/24/2021 03:57:00 PM EDT [facility] Name Value Range Interpretation Code Description Data Sarah rce(s) Supporting Document(s) Triglycerides 38 mg/dL <150 Normal (applies to non-numeric re sults) [facility] Cholesterol 119 mg/dL 100-200 Normal (applies to non-numeric resu lts) [facility] LDL Cholesterol Calculated 77 0-130 Normal (applies to n on-numeric results) [facility] HDL Cholesterol 34 mg/dL 40-60 Below low normal [facility] Cholesterol/HDL Ratio 3.6-6.7 Below low normal [facility] ID Date Data Source [id number] 07/24/2021 03:40:00 PM EDT [facility] Name Value Range Interpretation Code Description Data Sarah rce(s) Supporting Document(s) White Blood Count 3.5-10.5 Normal (applies to non-numeri c results) [facility] Red Blood Count 4.30-5.70 Normal (applies to non-numeric results) [facility] Hemoglobin 13.5-17.5 Normal (applies to non-numeric resul ts) [facility] Hematocrit 38.8-50.0 Normal (applies to non-numeric resul ts) [facility] Mean Corpuscular Volume 81.2-95.1 Above high normal [facility] Mean Corpuscular Hgb 25.6-32.2 Normal (applies to non-num maribel results) [facility] Mean Corpuscular Hgb Conc 32.0-36.0 Below low normal [facility] Red Cell Distribution Width 11.8-15.6 Normal (appli es to non-numeric results) [facility] Platelet Count 155 x10 3/uL 150-450 Normal (applies to non-numeric results) [facility] Mean Platelet Volume 9.4-12.4 Normal (applies to non-num maribel results) [facility] Neutrophils% (Auto) 31.0-71.0 Above high normal [facility] Lymphocytes% (Auto) 20.0-55.0 Below low normal [facility] Monocytes% (Auto) 4.0-12.0 Normal (applies to non-numeri c results) [facility] Eosinophils% (Auto) 1.0-8.0 Normal (applies to non-nume karmen results) [facility] Basophils% (Auto) 0.0-2.0 Normal (applies to non-numeri c results) [facility] Immature Granulocytes% (Auto) 0.0-2.0 Normal (ed lies to non-numeric results) [facility] Neutrophils# (Auto) 1.50-8.50 Normal (applies to non-nume karmen results) [facility] Lymphocytes# (Auto) 1.20-4.00 Below low normal [facility] Monocytes# (Auto) 0.00-0.90 Normal (applies to non-numeri c results) [facility] Eosinophils# (Auto) 0.00-0.50 Normal (applies to non-nume karmen results) [facility] Basophils# (Auto) 0.00-0.20 Normal (applies to non-numeri c results) [facility] Immature Granulocytes# (Auto) 0.00-7.00 No rmal (applies to non-numeric results) [facility] ID Date Data Source [id number] 02/21/2021 10:31:00 AM EDT [place] [facility] Department Imaging Report [address], [place] [address] %(RAD)RES..mtdd.print.filter("line") Name: FIONA SOFIA : 1955 Age/Sex: 65M Ordering Provider: Kristie Galvan MD Med Rec #: [id number] Reg Status: DEP REF Room #: Date of Service: 02/20/21 Report Number: [id number] cc:Kristie Galvan MD Send Report To: [id number] MRI/MRI Knee Rt No Contrast Reason for [...] Date/Time: 02/20/21 1401 Transcribed Date/Time: 02/21/21 1031 Perinatal Social Worker: KARAN Name Value Range Interpretation Code Description Data Sarah rce(s) Supporting Document(s) ID Date Data Source [id number] 02/17/2021 12:59:00 PM EDT [place] [facility] Department Imaging Report [address], [place] [address] %(RAD)RES..mtdd.print.filter("line") Name: FIONA SOFIA : 1955 Age/Sex: 65M Ordering Provider: Kristie Galvan MD Med Rec #: [id number] Reg Status: [facility] REF Room #: Date of Service: 02/17/21 Report Number: [id number] cc:Kristie Galvan MD Send Report To: [id number] XRP/XR Knee Rt Min. 4 Views Reason [...] Date/Time: 02/17/21 1052 Transcribed Date/Time: 02/17/21 1259 Perinatal Social Worker: [email or web address] Name Value Range Interpretation Code Description Data Sarah rce(s) Supporting Document(s) ID Date Data Source [id number] 01/23/2021 10:51:00 AM EDT [facility] Name Value Range Interpretation Code Description Data Sarah rce(s) Supporting Document(s) SARS-CoV-2 (COVID 19) NEGATIVE - SARS-CoV-2 (COVID19) [facility] This lab was ordered by [facility] a nd reported by [facility]. ID Date Data Source [id number] 08/07/2020 04:28:00 PM EDT [facility] Name Value Range Interpretation Code Description Data Sarah rce(s) Supporting Document(s) PT 9.2-11.7 Normal (applies to non-numeric results) [facility] INR Normal (applies to non-numeric results) [facility] The use of INR is restricted to patients on stable oral anticoagulant. Therapeutic Range: 2.0 - 3.0 High Risk Range: 2.5 - 3.5 ID Date Data Source [id number] 08/07/2020 04:02:00 PM EDT [facility] Name Value Range Interpretation Code Description Data Sarah rce(s) Supporting Document(s) Sodium 137 mmol/L 136-145 Normal (applies to non-numeric resul ts) [facility] Potassium 3.5-5.1 Normal (applies to non-numeric resul ts) [facility] Chloride 98 mmol/L 98-107 Normal (applies to non-numeric resul ts) [facility] Carbon Dioxide CO2 21-32 Above high normal [facility] Anion Gap 5.0-16.0 Normal (applies to non-numeric resul ts) [facility] BUN 14 mg/dL 7-18 Normal (applies to non-numeric results) [facility] Creatinine,Serum 0.8-1.5 Normal (applies to non-numeric results) [facility] GFR >60 Normal (applies to non-numeric results) [facility] Glucose Level 93 mg/dL 60-99 Normal (applies to non-numeric re sults) [facility] Reference range is only applicable when patient is fasting Note the following drug interference: Sulfasalazine Sulfapyridine Can see falsely depressed Can see falsely elevated result with up to 17% results with up to 11% decrease in measurement increase in measurement Recommend patients be collected for this test prior to administration of either drug. Calcium 8.5-10.1 Normal (applies to non-numeric resul ts) [facility] ID Date Data Source [id number] 08/07/2020 04:01:00 PM EDT [facility] Name Value Range Interpretation Code Description Data Sarah rce(s) Supporting Document(s) White Blood Count 3.5-10.5 Normal (applies to non-numeri c results) [facility] Red Blood Count 4.30-5.70 Normal (applies to non-numeric results) [facility] Hemoglobin 13.5-17.5 Normal (applies to non-numeric resul ts) [facility] Hematocrit 38.8-50.0 Normal (applies to non-numeric resul ts) [facility] Mean Corpuscular Volume 81.2-95.1 Above high normal [facility] Mean Corpuscular Hgb 25.6-32.2 Normal (applies to non-num maribel results) [facility] Mean Corpuscular Hgb Conc 32.0-36.0 Below low normal [facility] Red Cell Distribution Width 11.8-15.6 Normal (appli es to non-numeric results) [facility] Platelet Count 173 x10 3/uL 150-450 Normal (applies to non-numeric results) [facility] Mean Platelet Volume 9.4-12.4 Normal (applies to non-num maribel results) [facility] Neutrophils% (Auto) 31.0-71.0 Above high normal [facility] Lymphocytes% (Auto) 20.0-55.0 Below low normal [facility] Monocytes% (Auto) 4.0-12.0 Normal (applies to non-numeri c results) [facility] Eosinophils% (Auto) 1.0-8.0 Normal (applies to non-nume karmen results) [facility] Basophils% (Auto) 0.0-2.0 Normal (applies to non-numeri c results) [facility] Immature Granulocytes% (Auto) 0.0-2.0 Normal (ed lies to non-numeric results) [facility] Neutrophils# (Auto) 1.50-6.20 Above high normal [facility] Lymphocytes# (Auto) 1.20-4.00 Normal (applies to non-nume karmen results) [facility] Monocytes# (Auto) 0.00-0.90 Normal (applies to non-numeri c results) [facility] Eosinophils# (Auto) 0.00-0.50 Normal (applies to non-nume karmen results) [facility] Basophils# (Auto) 0.00-0.20 Normal (applies to non-numeri c results) [facility] Immature Granulocytes# (Auto) 0.00-7.00 No rmal (applies to non-numeric results) [facility] Procedure Social History No Information
--- NOTE | 2021-10-03 18:16 | REPVR ---
PROCEDURE INFORMATION: Exam: CTA Chest With Contrast Exam date and time: 10/03/2021 5:17 PM Age: 66 years old Clinical indication: Pain; Chest pressure; Additional info: Chest pain with SOB; R/O pe TECHNIQUE: Imaging protocol: Computed tomographic angiography of the chest with contrast. 3D rendering (Not supervised by radiologist): MIP and/or 3D reconstructed images were created by the technologist. Radiation optimization: All CT scans at this facility use at least one of these dose optimization techniques: automated exposure control; mA and/or kV adjustment per patient size (includes targeted exams where dose is matched to clinical indication); or iterative reconstruction. Contrast material: ISOVUE 370; Contrast volume: 75 ml; Contrast route: INTRAVENOUS (IV); COMPARISON: CT Chest with contrast 08/20/2021 10:40 AM FINDINGS: Pulmonary arteries: There is enlargement of the central pulmonary arteries, findings which can be associated with pulmonary arterial hypertension which should be correlated clinically. The proximal intralobar pulmonary artery and lower lobe segmental arteries on the right are encased by the dominant pulmonary parenchymal mass without significant stenosis. There are no pulmonary emboli. Aorta: There is fusiform dilatation of the supravalvular ascending thoracic aorta which measures 4.4 cm. maximally. There is no dissection or saccular component. There is mild atherosclerosis in the thoracic aorta. Lungs: There is moderate paraseptal and centrilobular emphysematous changes demonstrated which are most pronounced in the upper lung zones. Smooth bordered noncalcified angular shaped nodule abutting the minor fissure in the right lower lobe measures 4 x 6 x 3.4 mm, likely postinflammatory based on appearance. Pleural spaces: Small spiculated lesion in the right pulmonary apex measures 8 x 6.5 x 10.5 mm with extension to the posterior pleural surface. Findings stable in comparison to the prior study. Large infrahilar lobular and spiculated pulmonary parenchymal mass in the right lower lobe measures 3.8 x 5.9 x 5.1 cm, stable in appearance. Spiculated nodule right lung base measures 7.1 x 9.6 x 11 mm, a small 3.4 x 2.4 x 2.8 mm nodule in the left upper lobe, and another in the superior segment of the left lower lobe measuring 3.7 x 4.4 x 6 mm, both also stable in appearance. Heart: There is mild atherosclerotic calcification of the coronary arteries. Lymph nodes: Multiple mediastinal lymph nodes. Bones/joints: The spine demonstrates mild degenerative changes. Soft tissues: Unremarkable. IMPRESSION: 1. 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 No significant interval change in the size of the lesions. 2. There is moderate paraseptal and centrilobular emphysematous changes demonstrated which are most pronounced in the upper lung zones. No acute infiltrates. 3. There is fusiform dilatation of the supravalvular ascending thoracic aorta which measures 4.4 cm. maximally. There is no dissection or saccular component. 4. There is enlargement of the central pulmonary arteries, findings which can be associated with pulmonary arterial hypertension which should be correlated clinically. 5. The proximal intralobar pulmonary artery and lower lobe segmental arteries on the right are encased by the dominant pulmonary parenchymal mass without significant stenosis. 6. There are no pulmonary emboli. Electronically signed by: Dennys Simpson On 10/03/2021 18:15:40 PM
[2021-10-03] MEDS ORDERED: PRED20TA PO (18:40)
[2021-10-03 19:00] VITALS: BP 167/95
--- NOTE | 2021-10-03 19:03 | ECGEPIP ---
[facility] - ED Test Date: 2021-10-03 Pat Name: FIONA SOFIA Department: Room: - Gender: Male [employer]er: DEBORAHWENDI : 1955 Requested By: Tita Ramirez Order Number: [id number] Reading MD: Tiffany Marr Measurements Intervals [place] Rate: 62 P: 37 AK: 184 QRS: -58 QRSD: 140 T: -13 QT: 428 QTc: 434 Interpretive Statements Normal sinus rhythm Left axis deviation Right bundle branch block Inferior infarct , age undetermined decreased rate 07/06/19 Electronically Signed on 10-03-2021 19:02:48 EST by Tiffany Marr
== END 2021-10-03 19:03 | disposition home or self-care (01) ==
LOC: M ED 15:26
DX: J44.1 Chronic obstructive pulmonary disease with (acute) exacerbation (principal); R91.1 Solitary pulmonary nodule; I51.7 Cardiomegaly; I45.10 Unspecified right bundle-branch block; I10 Essential (primary) hypertension; E78.5 Hyperlipidemia, unspecified; Z82.49 Family history of ischemic heart disease and other diseases of the circulatory system
CPT/HCPCS: 71045; 71275; 80047; 80048; 80076; 83690; 84484; 85025; 85652; 86140; 93005; 93041; 94760; 96374; 99285; J2930; Q9967

== ENCOUNTER 2021-11-12 08:20 | Day surgery (SDC) | payer MEDICARE, MEDICAID ==
[~2021-11-12] VITALS: Ht 182.9 cm; Wt 129.0 kg
[~2021-11-12 08:20] MED LIST changes: +ALLO10TA PO; -MONT10TA10 PO; +MONT10TA97 PO; +PRED20TA PO; +TIZA10TA; +TIZA10TA PO; -TIZA4TAB4; -TIZA4TAB4 PO
[2021-11-12] MEDS ORDERED: propofoL 200 MG/20 ML VIAL As Ordered ONE (08:30)
[2021-11-12] MEDS ORDERED: SUGAMMADEX SODIUM 500 MG/5 ML VIAL (BRIDION) As Ordered ONE (08:30)
[2021-11-12] MEDS ORDERED: ROCURONIUM BROMIDE 50 MG/5 ML VIAL As Ordered ONE ×2 (08:30→11:29)
[2021-11-12] MEDS ORDERED: LIDOCAINE 2% 100MG/5ML SDV (FOR ANES.) As Ordered ONE (08:30)
[2021-11-12] MEDS ORDERED: MIDAZOLAM INJ 2MG/2ML VIAL (J2250 PER 1MG) As Ordered ONE (08:31)
[2021-11-12] MEDS ORDERED: ONDANSETRON 4MG/2ML VIAL As Ordered ONE (08:31)
[2021-11-12] MEDS ORDERED: fentaNYL 100 MCG/2 ML INJECTION (J3010) As Ordered ONE (08:31)
[2021-11-12] MEDS ORDERED: dexameTHASONE 4 MG/ML 1ML VIAL (J1100 PER 1MG) As Ordered ONE (08:31)
[2021-11-12] MEDS ORDERED: LR 1,000 ML IV ONE (09:45)
[2021-11-12] MEDS ORDERED: ALBUTEROL SULFATE 2.5 MG/0.5 ML INH NEB SOLN INH ONE (10:20)
[2021-11-12] MEDS ORDERED: LIDOCAINE 4% INJ 5ML AMP NEB ONE (10:20)
[2021-11-12] MEDS ORDERED: CETACAINE SPRAY 5GM As Ordered ONE (10:30)
[2021-11-12] MEDS ORDERED: EPINEPHrine 1MG/10ML SYRINGE 1.5IN As Ordered ONE (10:31)
[2021-11-12] MEDS ORDERED: PHENYLephrine 500MCG 5ML (100MCG/ML) SYRINGE As Ordered ONE (12:13)
[2021-11-12] MEDS ORDERED: ACETAMINOPHEN TAB 650MG DOSE (2X325MG) PO PRN (13:30)
[2021-11-12] MEDS ORDERED: LR 1,000 ML IV SCH (13:30)
[2021-11-12] MEDS ORDERED: ONDANSETRON 4MG/2ML VIAL IV PRN (13:30)
[2021-11-12] MEDS ORDERED: fentaNYL 100 MCG/2 ML INJECTION (J3010) IV PRN (13:30)
[2021-11-12 13:50] VITALS: BP 142/90
== END 2021-11-12 14:05 | disposition home or self-care (01) ==
LOC: M SDC 08:20
PROVIDERS: ATTEND Internal Medicine Pulmonary Disease
DX: C34.31 Malignant neoplasm of lower lobe, right bronchus or lung (principal); I10 Essential (primary) hypertension; E78.00 Pure hypercholesterolemia, unspecified; Z92.21 Personal history of antineoplastic chemotherapy; Z87.891 Personal history of nicotine dependence; Z85.048 Personal history of other malignant neoplasm of rectum, rectosigmoid junction, and anus; Z92.3 Personal history of irradiation; J44.9 Chronic obstructive pulmonary disease, unspecified; R06.83 Snoring; G47.30 Sleep apnea, unspecified; Z79.899 Other long term (current) drug therapy; Z79.51 Long term (current) use of inhaled steroids; Z79.1 Long term (current) use of non-steroidal anti-inflammatories (NSAID)
CPT/HCPCS: 31623; 31624; 31627; 31628; 31629; 31652; 31654; 71045; 76000; 87070; 87077; 87102; 87116; 87186; 87205; 87206; 88104; 88108; 88173; 88305; 88313; 88341; 88342; J1100; J2250; J2370; J2405; J3010; S2900

== ENCOUNTER → 2021-11-25 | Outpatient (CLI) | payer MEDICARE, MEDICAID | LOC: M PLARAD 14:02 | PROVIDERS: ATTEND Internal Medicine Pulmonary Disease | DX: R91.1 Solitary pulmonary nodule (principal) | CPT/HCPCS: 78815; A9552 ==

== ENCOUNTER → 2022-01-23 | Outpatient (CLI) | payer MEDICARE, MEDICAID ==
[~2022-01-23] MED LIST changes: +PROHANCE 279.3MG/ML 15ML VIAL ONE; +PROHANCE 279.3MG/ML 5ML VIAL ONE
== END ==
LOC: M PLAIMG 13:15
PROVIDERS: ATTEND Internal Medicine Hematology & Oncology
DX: C34.31 Malignant neoplasm of lower lobe, right bronchus or lung (principal); C20 Malignant neoplasm of rectum; R68.82 Decreased libido; R90.82 White matter disease, unspecified
CPT/HCPCS: 70553; A9576

== ENCOUNTER 2022-05-04 10:09 | Inpatient (IN) | payer MEDICARE, MEDICAID ==
[~2022-05-04] VITALS: Ht 185.4 cm; Wt 125.6 kg
[~2022-05-04 10:09] MED LIST changes: -PROHANCE 279.3MG/ML 15ML VIAL ONE; -PROHANCE 279.3MG/ML 5ML VIAL ONE
[2022-05-04 11:29] LABS: BASO % 0.3 % (0.0-1.0); EOS # 0.1 10^3/uL (0.0-0.5); EOS % 0.9 % (0.0-3.0); HEMATOCRIT 45.9 % (42.0-52.0); LYMPH # 0.5 10^3/uL (1.5-5.0); LYMPH % 6.8 % (24.0-44.0); MEAN CORPUSCULAR HEMOGLOBIN 29.9 pg (27.0-33.0); MEAN CORPUSCULAR HGB CONC 30.5 g/dl (32.0-36.5); MEAN CORPUSCULAR VOLUME 97.9 fl (80.0-96.0); MONO # 0.9 10^3/uL (0.0-0.8); MONO % 12.4 % (2.0-8.0); NEUTROPHILS # 5.6 10^3/uL (1.5-8.5); PLATELET COUNT, AUTOMATED 110 10^3/uL (150-450); RED BLOOD COUNT 4.69 10^6/uL (4.30-6.10)
[2022-05-04 11:53] LABS: ABG BASE EXCESS 0.3 (-2.0-2.0); ABG HCO3 28.9 MEQ/L (22.0-26.0); ABG O2 SATURATION 92.9 % (95.0-99.0); ABG PARTIAL PRESSURE O2 71.8 mmHg (75.0-100.0); ABG STANDARD HCO3 24.7 MEQ/L (22.0-26.0); ABG TOTAL CO2 30.9 MEQ/L (23.0-31.0)
[2022-05-04 11:56] LABS: ABG PARTIAL PRESSURE CO2 64.4 mmHg (35.0-45.0)
[2022-05-04 12:59] LABS: ALBUMIN 3.4 GM/DL (3.2-5.2); ALT/SGPT 18 U/L (12-78); BILIRUBIN,DIRECT 0.1 MG/DL (0.0-0.2); BILIRUBIN,TOTAL 0.7 MG/DL (0.2-1.0); BLOOD UREA NITROGEN 14 MG/DL (7-18); CALCIUM LEVEL 8.9 MG/DL (8.8-10.2); CARBON DIOXIDE LEVEL 35 MEQ/L (21-32); CHLORIDE LEVEL 103 MEQ/L (98-107); CREATININE FOR GFR 0.75 MG/DL (0.70-1.30); GLOMERULAR FILTRATION RATE > 60.0 (>49); GLUCOSE, FASTING 84 MG/DL (70-100); POTASSIUM SERUM 4.3 MEQ/L (3.5-5.1); SODIUM LEVEL 140 MEQ/L (136-145); TOTAL PROTEIN 6.2 GM/DL (6.4-8.2)
[2022-05-04] MEDS ORDERED: MONT10TA97 PO (14:52)
[2022-05-04] MEDS ORDERED: ALLO300T2 PO (14:52)
[2022-05-04] MEDS ORDERED: HOME MED LIST COMPLETE! XX SCH (14:55)
[2022-05-04] MEDS ORDERED: IPRATROPIUM 0.5MG/ALBUTEROL 2.5MG INH SOL UD 3ML (DUONEB) NEB PRN (15:20)
[2022-05-04] MEDS: dexameTHASONE 4 MG/ML 1ML VIAL (J1100 PER 1MG) IV SCH (16:01)
[2022-05-04 16:24] LABS: INR 0.96; PARTIAL THROMBOPLASTIN TIME 32.6 SECONDS (25.9-37.0); PROTHROMBIN TIME 13.2 SECONDS (12.7-14.5)
[2022-05-04] MEDS ORDERED: ALBUTEROL 90 MCG/ACT 8GM HFA INHALER INH PRN (16:25)
[2022-05-04 16:27] LABS: D-DIMER QUANT 847.92 ng/ml (<500)
[2022-05-04] MEDS: DOXYCYCLINE HYCLATE 100 MG in D5W MINI-BAG PLUS 100 ML IV SCH (17:59)
[2022-05-04] MEDS ORDERED: REMDESIVIR 200 MG in NS 250 ML IV ONE (18:00)
[2022-05-04] MEDS ORDERED: SODIUM CHLORIDE 0.9% INJ 10 ML SYR IV ONE (19:00)
[2022-05-04 19:25] LABS: ALBUMIN 3.3 GM/DL (3.2-5.2); ALT/SGPT 18 U/L (12-78); BILIRUBIN,DIRECT < 0.1 MG/DL (0.0-0.2); BILIRUBIN,TOTAL 0.5 MG/DL (0.2-1.0); C REACTIVE PROTEIN QUANTITATIV 8.23 MG/DL (0.00-0.30); FERRITIN 146 NG/ML (26-388); LDH LACTATE DEHYDROGENASE 332 U/L (87-241); MAGNESIUM LEVEL 2.2 MG/DL (1.8-2.4); NT-PRO BNP 401 PG/ML (<125); TOTAL PROTEIN 6.6 GM/DL (6.4-8.2)
[2022-05-04] MEDS: ENOXAPARIN 40MG/0.4ML SYRINGE (J1650 PER 10MG) SC SCH (19:27)
[2022-05-04 19:36] LABS: ABG BASE EXCESS 3.3 (-2.0-2.0); ABG HCO3 33.6 MEQ/L (22.0-26.0); ABG O2 SATURATION 93.4 % (95.0-99.0); ABG PARTIAL PRESSURE CO2 80.4 mmHg (35.0-45.0); ABG STANDARD HCO3 27.3 MEQ/L (22.0-26.0); ABG TOTAL CO2 36.1 MEQ/L (23.0-31.0); ABG pH (ARTERIAL) 7.239 UNITS (7.350-7.450)
[2022-05-04] MEDS: COMBIVENT RESPIMAT 100-20MCG INHALER 4GM INH SCH (19:50)
[2022-05-04] MEDS ORDERED: IPRATROPIUM 0.5MG/ALBUTEROL 2.5MG INH SOL UD 3ML (DUONEB) NEB SCH (20:00)
[2022-05-04] MEDS ORDERED: NS 1,000 ML IV SCH (20:00)
[2022-05-04 22:18] VITALS: O2SAT 98
[2022-05-04 23:00] VITALS: BP 156/75
[2022-05-04 23:16] LABS: ABG BASE EXCESS 4.9 (-2.0-2.0); ABG HCO3 35.5 MEQ/L (22.0-26.0); ABG O2 SATURATION 92.5 % (95.0-99.0); ABG PARTIAL PRESSURE O2 69.8 mmHg (75.0-100.0); ABG STANDARD HCO3 28.8 MEQ/L (22.0-26.0); ABG TOTAL CO2 38.1 MEQ/L (23.0-31.0)
[2022-05-04 23:17] LABS: ABG PARTIAL PRESSURE CO2 84.7 mmHg (35.0-45.0)
[2022-05-05] VITALS (15 sets, daily range): BP systolic 110–168; BP diastolic 56–77; O2SAT 87–98
[2022-05-05] MEDS: COMBIVENT RESPIMAT 100-20MCG INHALER 4GM INH SCH ×4 (02:00→20:08)
[2022-05-05 02:05] LABS: ABG BASE EXCESS 9.9 (-2.0-2.0); ABG HCO3 42.9 MEQ/L (22.0-26.0); ABG O2 SATURATION 96.7 % (95.0-99.0); ABG PARTIAL PRESSURE O2 98.2 mmHg (75.0-100.0); ABG STANDARD HCO3 33.6 MEQ/L (22.0-26.0); ABG TOTAL CO2 46.4 MEQ/L (23.0-31.0)
[2022-05-05 02:12] LABS: ABG pH (ARTERIAL) 7.201 UNITS (7.350-7.450)
[2022-05-05 02:13] LABS: ABG PARTIAL PRESSURE CO2 112.1 mmHg (35.0-45.0)
[2022-05-05 04:21] LABS: ABG BASE EXCESS 2.1 (-2.0-2.0); ABG HCO3 31.8 MEQ/L (22.0-26.0); ABG O2 SATURATION 95.7 % (95.0-99.0); ABG PARTIAL PRESSURE O2 84.9 mmHg (75.0-100.0); ABG STANDARD HCO3 26.3 MEQ/L (22.0-26.0); ABG TOTAL CO2 34.1 MEQ/L (23.0-31.0)
[2022-05-05 04:22] LABS: ABG PARTIAL PRESSURE CO2 75.1 mmHg (35.0-45.0); ABG pH (ARTERIAL) 7.244 UNITS (7.350-7.450)
[2022-05-05 04:57] LABS: HEMATOCRIT 44.6 % (42.0-52.0); HEMOGLOBIN 13.3 g/dl (13.5-17.5); LYMPH # 0.4 10^3/uL (1.5-5.0); LYMPH % 6.5 % (24.0-44.0); MEAN CORPUSCULAR HEMOGLOBIN 29.4 pg (27.0-33.0); MEAN CORPUSCULAR HGB CONC 29.8 g/dl (32.0-36.5); MEAN CORPUSCULAR VOLUME 98.5 fl (80.0-96.0); MONO # 0.5 10^3/uL (0.0-0.8); MONO % 8.2 % (2.0-8.0); NEUTROPHILS # 4.9 10^3/uL (1.5-8.5); NEUTROPHILS % 85.1 % (36.0-66.0); PLATELET COUNT, AUTOMATED 105 10^3/uL (150-450); RED BLOOD COUNT 4.53 10^6/uL (4.30-6.10); WHITE BLOOD COUNT 5.7 10^3/uL (4.0-10.0)
[2022-05-05] MEDS: DOXYCYCLINE HYCLATE 100 MG in D5W MINI-BAG PLUS 100 ML IV SCH (05:18)
[2022-05-05] MEDS: ENOXAPARIN 40MG/0.4ML SYRINGE (J1650 PER 10MG) SC SCH ×2 (05:18→17:16)
[2022-05-05 05:26] LABS: BLOOD UREA NITROGEN 15 MG/DL (7-18); CALCIUM LEVEL 8.5 MG/DL (8.8-10.2); CARBON DIOXIDE LEVEL 38 MEQ/L (21-32); CHLORIDE LEVEL 103 MEQ/L (98-107); GLOMERULAR FILTRATION RATE > 60.0 (>49); GLUCOSE, FASTING 106 MG/DL (70-100); POTASSIUM SERUM 4.9 MEQ/L (3.5-5.1); SODIUM LEVEL 139 MEQ/L (136-145)
[2022-05-05 08:23] LABS: ABG BASE EXCESS 7.1 (-2.0-2.0); ABG O2 SATURATION 98.8 % (95.0-99.0); ABG PARTIAL PRESSURE O2 169.9 mmHg (75.0-100.0); ABG TOTAL CO2 39.4 MEQ/L (23.0-31.0); ABG pH (ARTERIAL) 7.286 UNITS (7.350-7.450)
[2022-05-05 08:27] LABS: ABG PARTIAL PRESSURE CO2 79.4 mmHg (35.0-45.0)
[2022-05-05] MEDS ORDERED: lisinopriL 40MG TAB PO SCH (09:00)
[2022-05-05] MEDS ORDERED: ATORVASTATIN 20 MG TAB PO SCH (09:00)
[2022-05-05] MEDS: dexameTHASONE 4 MG/ML 1ML VIAL (J1100 PER 1MG) IV SCH (10:23)
[2022-05-05] MEDS: FAMOTIDINE 20 MG TAB PO SCH (10:24)
[2022-05-05] MEDS: MONTELUKAST 10 MG TAB PO SCH (10:24)
[2022-05-05] MEDS: BARICITINIB 2MG TABLET (OLUMIANT) FOR EUA PO SCH (10:24)
[2022-05-05] MEDS: tiZANidine 4 MG TAB PO SCH (10:25)
[2022-05-05] MEDS: amLODIPine 5 MG TAB PO SCH (10:25)
[2022-05-05] MEDS: allopurinoL 300 MG TAB PO SCH (10:25)
[2022-05-05 16:35] LABS: ABG BASE EXCESS 6.4 (-2.0-2.0); ABG HCO3 35.2 MEQ/L (22.0-26.0); ABG O2 SATURATION 94.8 % (95.0-99.0); ABG PARTIAL PRESSURE O2 74.4 mmHg (75.0-100.0); ABG STANDARD HCO3 30.2 MEQ/L (22.0-26.0); ABG TOTAL CO2 37.4 MEQ/L (23.0-31.0); ABG pH (ARTERIAL) 7.313 UNITS (7.350-7.450)
[2022-05-05] MEDS ORDERED: REMDESIVIR 100 MG in NS 250 ML IV SCH (18:00)
[2022-05-05] MEDS ORDERED: SODIUM CHLORIDE 0.9% INJ 10 ML SYR IV SCH (19:00)
[2022-05-06] VITALS (11 sets, daily range): BP systolic 115–159; BP diastolic 57–79; O2SAT 6–97
[2022-05-06] MEDS: COMBIVENT RESPIMAT 100-20MCG INHALER 4GM INH SCH ×4 (01:15→20:20)
[2022-05-06] MEDS: ENOXAPARIN 40MG/0.4ML SYRINGE (J1650 PER 10MG) SC SCH ×2 (05:14→18:19)
[2022-05-06 05:15] LABS: BASO % 0.2 % (0.0-1.0); EOS % 0.2 % (0.0-3.0); HEMATOCRIT 44.3 % (42.0-52.0); HEMOGLOBIN 13.2 g/dl (13.5-17.5); LYMPH # 0.7 10^3/uL (1.5-5.0); LYMPH % 10.8 % (24.0-44.0); MEAN CORPUSCULAR HEMOGLOBIN 29.1 pg (27.0-33.0); MEAN CORPUSCULAR HGB CONC 29.8 g/dl (32.0-36.5); MEAN CORPUSCULAR VOLUME 97.8 fl (80.0-96.0); MONO # 0.5 10^3/uL (0.0-0.8); MONO % 7.8 % (2.0-8.0); NEUTROPHILS # 5.1 10^3/uL (1.5-8.5); NEUTROPHILS % 80.7 % (36.0-66.0); PLATELET COUNT, AUTOMATED 101 10^3/uL (150-450); RED BLOOD COUNT 4.53 10^6/uL (4.30-6.10); WHITE BLOOD COUNT 6.3 10^3/uL (4.0-10.0)
[2022-05-06 05:26] LABS: INR 0.96; PROTHROMBIN TIME 13.2 SECONDS (12.7-14.5)
[2022-05-06 05:27] LABS: PARTIAL THROMBOPLASTIN TIME 30.9 SECONDS (25.9-37.0)
[2022-05-06 05:38] LABS: ABG BASE EXCESS 10.7 (-2.0-2.0); ABG HCO3 39.1 MEQ/L (22.0-26.0); ABG O2 SATURATION 95.8 % (95.0-99.0); ABG PARTIAL PRESSURE O2 79.4 mmHg (75.0-100.0); ABG STANDARD HCO3 34.4 MEQ/L (22.0-26.0); ABG TOTAL CO2 41.2 MEQ/L (23.0-31.0); ABG pH (ARTERIAL) 7.362 UNITS (7.350-7.450)
[2022-05-06 05:41] LABS: ABG PARTIAL PRESSURE CO2 70.4 mmHg (35.0-45.0)
[2022-05-06 05:45] LABS: ALBUMIN 2.7 GM/DL (3.2-5.2); ALT/SGPT 14 U/L (12-78); BILIRUBIN,DIRECT 0.1 MG/DL (0.0-0.2); BILIRUBIN,TOTAL 0.3 MG/DL (0.2-1.0); BLOOD UREA NITROGEN 17 MG/DL (7-18); CALCIUM LEVEL 8.8 MG/DL (8.8-10.2); CARBON DIOXIDE LEVEL 43 MEQ/L (21-32); CHLORIDE LEVEL 101 MEQ/L (98-107); CREATININE FOR GFR 0.75 MG/DL (0.70-1.30); FERRITIN 125 NG/ML (26-388); GLOMERULAR FILTRATION RATE > 60.0 (>49); GLUCOSE, FASTING 88 MG/DL (70-100); LDH LACTATE DEHYDROGENASE 143 U/L (87-241); MAGNESIUM LEVEL 1.8 MG/DL (1.8-2.4); NT-PRO BNP 89 PG/ML (<125); POTASSIUM SERUM 5.3 MEQ/L (3.5-5.1); SODIUM LEVEL 139 MEQ/L (136-145); TOTAL PROTEIN 5.6 GM/DL (6.4-8.2)
[2022-05-06] MEDS: MONTELUKAST 10 MG TAB PO SCH (08:55)
[2022-05-06] MEDS: tiZANidine 4 MG TAB PO SCH (08:55)
[2022-05-06] MEDS: BARICITINIB 2MG TABLET (OLUMIANT) FOR EUA PO SCH (08:56)
[2022-05-06] MEDS: allopurinoL 300 MG TAB PO SCH (08:56)
[2022-05-06] MEDS: FAMOTIDINE 20 MG TAB PO SCH (08:56)
[2022-05-06] MEDS: amLODIPine 5 MG TAB PO SCH (08:57)
[2022-05-06] MEDS: dexameTHASONE 4 MG/ML 1ML VIAL (J1100 PER 1MG) IV SCH (08:57)
[2022-05-07] VITALS (8 sets, daily range): BP systolic 130–174; BP diastolic 65–93; O2SAT 94
[2022-05-07] MEDS: COMBIVENT RESPIMAT 100-20MCG INHALER 4GM INH SCH ×4 (02:02→19:49)
[2022-05-07 04:56] LABS: BASO % 0.2 % (0.0-1.0); EOS % 0.2 % (0.0-3.0); HEMATOCRIT 41.3 % (42.0-52.0); HEMOGLOBIN 13.1 g/dl (13.5-17.5); LYMPH # 0.9 10^3/uL (1.5-5.0); LYMPH % 15.4 % (24.0-44.0); MEAN CORPUSCULAR HEMOGLOBIN 30.7 pg (27.0-33.0); MEAN CORPUSCULAR HGB CONC 31.7 g/dl (32.0-36.5); MEAN CORPUSCULAR VOLUME 96.7 fl (80.0-96.0); MONO # 0.6 10^3/uL (0.0-0.8); MONO % 9.6 % (2.0-8.0); NEUTROPHILS # 4.5 10^3/uL (1.5-8.5); NEUTROPHILS % 74.4 % (36.0-66.0); PLATELET COUNT, AUTOMATED 104 10^3/uL (150-450); RED BLOOD COUNT 4.27 10^6/uL (4.30-6.10)
[2022-05-07 05:16] LABS: BLOOD UREA NITROGEN 21 MG/DL (7-18); CALCIUM LEVEL 9.1 MG/DL (8.8-10.2); CARBON DIOXIDE LEVEL 39 MEQ/L (21-32); CHLORIDE LEVEL 100 MEQ/L (98-107); CREATININE FOR GFR 0.78 MG/DL (0.70-1.30); GLOMERULAR FILTRATION RATE > 60.0 (>49); GLUCOSE, FASTING 84 MG/DL (70-100); MAGNESIUM LEVEL 1.9 MG/DL (1.8-2.4); POTASSIUM SERUM 4.7 MEQ/L (3.5-5.1); SODIUM LEVEL 142 MEQ/L (136-145)
[2022-05-07] MEDS: ENOXAPARIN 40MG/0.4ML SYRINGE (J1650 PER 10MG) SC SCH ×2 (06:30→18:06)
[2022-05-07] MEDS: FAMOTIDINE 20 MG TAB PO SCH (08:11)
[2022-05-07] MEDS: tiZANidine 4 MG TAB PO SCH (08:11)
[2022-05-07] MEDS: MONTELUKAST 10 MG TAB PO SCH (08:11)
[2022-05-07] MEDS: BARICITINIB 2MG TABLET (OLUMIANT) FOR EUA PO SCH (08:11)
[2022-05-07] MEDS: dexameTHASONE 4 MG/ML 1ML VIAL (J1100 PER 1MG) IV SCH (08:12)
[2022-05-07] MEDS: amLODIPine 5 MG TAB PO SCH (08:12)
[2022-05-07] MEDS: allopurinoL 300 MG TAB PO SCH (08:12)
[2022-05-08] MEDS: COMBIVENT RESPIMAT 100-20MCG INHALER 4GM INH SCH ×2 (01:18→07:10)
[2022-05-08 05:34] LABS: BASO % 0.2 % (0.0-1.0); EOS % 0.3 % (0.0-3.0); HEMATOCRIT 43.8 % (42.0-52.0); HEMOGLOBIN 13.7 g/dl (13.5-17.5); LYMPH # 0.8 10^3/uL (1.5-5.0); LYMPH % 13.8 % (24.0-44.0); MEAN CORPUSCULAR HEMOGLOBIN 29.7 pg (27.0-33.0); MEAN CORPUSCULAR HGB CONC 31.3 g/dl (32.0-36.5); MONO # 0.7 10^3/uL (0.0-0.8); MONO % 12.6 % (2.0-8.0); NEUTROPHILS # 4.3 10^3/uL (1.5-8.5); NEUTROPHILS % 72.9 % (36.0-66.0); PLATELET COUNT, AUTOMATED 102 10^3/uL (150-450); RED BLOOD COUNT 4.61 10^6/uL (4.30-6.10); WHITE BLOOD COUNT 5.9 10^3/uL (4.0-10.0)
[2022-05-08 05:46] LABS: INR 0.89; PROTHROMBIN TIME 12.4 SECONDS (12.7-14.5)
[2022-05-08 06:00] VITALS: BP 165/70
[2022-05-08] MEDS: ENOXAPARIN 40MG/0.4ML SYRINGE (J1650 PER 10MG) SC SCH (06:00)
[2022-05-08 06:01] LABS: ALBUMIN 2.9 GM/DL (3.2-5.2); ALT/SGPT 34 U/L (12-78); BILIRUBIN,DIRECT 0.1 MG/DL (0.0-0.2); BILIRUBIN,TOTAL 0.4 MG/DL (0.2-1.0); BLOOD UREA NITROGEN 19 MG/DL (7-18); CALCIUM LEVEL 9.1 MG/DL (8.8-10.2); CARBON DIOXIDE LEVEL 36 MEQ/L (21-32); CHLORIDE LEVEL 102 MEQ/L (98-107); CREATININE FOR GFR 0.65 MG/DL (0.70-1.30); FERRITIN 111 NG/ML (26-388); GLOMERULAR FILTRATION RATE > 60.0 (>49); GLUCOSE, FASTING 94 MG/DL (70-100); LDH LACTATE DEHYDROGENASE 133 U/L (87-241); MAGNESIUM LEVEL 1.8 MG/DL (1.8-2.4); NT-PRO BNP 238 PG/ML (<125); POTASSIUM SERUM 4.2 MEQ/L (3.5-5.1); SODIUM LEVEL 143 MEQ/L (136-145); TOTAL PROTEIN 5.6 GM/DL (6.4-8.2)
[2022-05-08 08:00] VITALS: BP 150/80
[2022-05-08] MEDS: MONTELUKAST 10 MG TAB PO SCH (08:24)
[2022-05-08] MEDS: allopurinoL 300 MG TAB PO SCH (08:24)
[2022-05-08] MEDS: FAMOTIDINE 20 MG TAB PO SCH (08:24)
[2022-05-08] MEDS: tiZANidine 4 MG TAB PO SCH (08:24)
[2022-05-08 08:26] VITALS: BP 150/80
[2022-05-08] MEDS: BARICITINIB 2MG TABLET (OLUMIANT) FOR EUA PO SCH (08:26)
[2022-05-08] MEDS: amLODIPine 5 MG TAB PO SCH (08:26)
[2022-05-08] MEDS ORDERED: PRED10TA2 PO (08:33)
== END 2022-05-08 11:11 | disposition home or self-care (01) | DRG 177 ==
LOC: M ED 10:09 → M ED INP 15:10 → ENRESERV 20:17 → M ICU 22:03
PROVIDERS: ADMIT Family Medicine; ATTEND Family Medicine
PROC: XW033E5 Introduction of Remdesivir Anti-infective into Peripheral Vein, Percutaneous Approach, New Technology Group 5 (ICD-10-PCS; principal; 2022-05-04)
PROC: 5A09457 Assistance with Respiratory Ventilation, 24-96 Consecutive Hours, Continuous Positive Airway Pressure (ICD-10-PCS; 2022-05-04)
PROC: 3E0333Z Introduction of Anti-inflammatory into Peripheral Vein, Percutaneous Approach (ICD-10-PCS; 2022-05-04)
DX: U07.1 COVID-19 (principal); J96.01 Acute respiratory failure with hypoxia; J96.02 Acute respiratory failure with hypercapnia; J44.1 Chronic obstructive pulmonary disease with (acute) exacerbation; C34.91 Malignant neoplasm of unspecified part of right bronchus or lung; R04.2 Hemoptysis; C77.9 Secondary and unspecified malignant neoplasm of lymph node, unspecified; Z66 Do not resuscitate; G47.33 Obstructive sleep apnea (adult) (pediatric); F17.210 Nicotine dependence, cigarettes, uncomplicated; M10.9 Gout, unspecified; Z85.048 Personal history of other malignant neoplasm of rectum, rectosigmoid junction, and anus; Z92.3 Personal history of irradiation; Z92.21 Personal history of antineoplastic chemotherapy; E78.5 Hyperlipidemia, unspecified; I11.9 Hypertensive heart disease without heart failure; Z99.81 Dependence on supplemental oxygen; Z79.899 Other long term (current) drug therapy; K21.9 Gastro-esophageal reflux disease without esophagitis

== ENCOUNTER 2022-05-31 07:15 | Inpatient (IN) | payer MEDICARE, MEDICAID ==
[2022-05-31] VITALS (8 sets, daily range): BP systolic 100–123; BP diastolic 53–92
[~2022-05-31] VITALS: Ht 182.9 cm; Wt 127.5 kg
[~2022-05-31 07:15] MED LIST changes: +ALLO300T2 PO; +PRED10TA2 PO
[2022-05-31] MEDS ORDERED: methylPREDNISolone 125MG 2ML VIAL IV ONE (07:45)
[2022-05-31] MEDS: COMBIVENT RESPIMAT 100-20MCG INHALER 4GM INH SCH ×3 (07:55→08:30)
[2022-05-31 08:05] LABS: VENOUS BASE EXCESS 5.6 (-2.0-2.0); VENOUS HCO3 35.2 MEQ/L (23.0-27.0); VENOUS O2 SATURATION 75.1 % (60.0-80.0); VENOUS PARTIAL PRESSURE CO2 77.2 mmHg (38.0-50.0); VENOUS PARTIAL PRESSURE O2 39.7 mmHg (30.0-50.0); VENOUS PH 7.277 UNITS (7.330-7.430); VENOUS STANDARD HCO3 28.9 MEQ/L; VENOUS TOTAL CO2 37.6 MEQ/L (24.0-28.0)
[2022-05-31 08:10] LABS: BASO % 0.2 % (0.0-1.0); EOS # 0.1 10^3/uL (0.0-0.5); EOS % 0.3 % (0.0-3.0); HEMATOCRIT 44.1 % (42.0-52.0); HEMOGLOBIN 13.4 g/dl (13.5-17.5); LYMPH # 0.4 10^3/uL (1.5-5.0); LYMPH % 2.1 % (24.0-44.0); MEAN CORPUSCULAR HEMOGLOBIN 30.7 pg (27.0-33.0); MEAN CORPUSCULAR HGB CONC 30.4 g/dl (32.0-36.5); MEAN CORPUSCULAR VOLUME 101.1 fl (80.0-96.0); MONO # 0.9 10^3/uL (0.0-0.8); MONO % 5.1 % (2.0-8.0); NEUTROPHILS # 16.9 10^3/uL (1.5-8.5); NEUTROPHILS % 91.6 % (36.0-66.0); PLATELET COUNT, AUTOMATED 130 10^3/uL (150-450); RED BLOOD COUNT 4.36 10^6/uL (4.30-6.10); WHITE BLOOD COUNT 18.4 10^3/uL (4.0-10.0)
[2022-05-31 09:18] LABS: ALBUMIN 2.8 GM/DL (3.2-5.2); ALT/SGPT 15 U/L (12-78); BILIRUBIN,DIRECT 0.2 MG/DL (0.0-0.2); BILIRUBIN,TOTAL 0.5 MG/DL (0.2-1.0); BLOOD UREA NITROGEN 24 MG/DL (7-18); CALCIUM LEVEL 9.5 MG/DL (8.8-10.2); CARBON DIOXIDE LEVEL 34 MEQ/L (21-32); CHLORIDE LEVEL 100 MEQ/L (98-107); CREATININE FOR GFR 1.07 MG/DL (0.70-1.30); GLOMERULAR FILTRATION RATE > 60.0 (>49); GLUCOSE, FASTING 163 MG/DL (70-100); NT-PRO BNP 448 PG/ML (<125); POTASSIUM SERUM 4.7 MEQ/L (3.5-5.1); SODIUM LEVEL 136 MEQ/L (136-145); THYROXINE (T4) 6.6 UG/DL (4.5-12.0); TOTAL PROTEIN 6.9 GM/DL (6.4-8.2)
[2022-05-31] MEDS ORDERED: TREL1AER INH (09:29)
[2022-05-31] MEDS ORDERED: HOME MED LIST COMPLETE! XX SCH (09:30)
[2022-05-31] MEDS ORDERED: ISOVUE-370 76% 100ML VIAL As Ordered ONE (09:56)
[2022-05-31] MEDS ORDERED: cefTRIAXone SOD 2 GM in D5W MINI-BAG PLUS 50 ML IV ONE (10:30)
[2022-05-31] MEDS ORDERED: AZITHROMYCIN INJ 500 MG, VIAL MATE ADAPTER 1 EACH in NS 250 ML IV ONE (10:30)
[2022-05-31] MEDS: IPRATROPIUM 0.5MG/ALBUTEROL 2.5MG INH SOL UD 3ML (DUONEB) NEB SCH ×3 (11:44→19:20)
[2022-05-31 13:54] LABS: ABG BASE EXCESS 3.7 (-2.0-2.0); ABG HCO3 33.7 MEQ/L (22.0-26.0); ABG O2 SATURATION 97.8 % (95.0-99.0); ABG PARTIAL PRESSURE CO2 79.6 mmHg (35.0-45.0); ABG PARTIAL PRESSURE O2 128.3 mmHg (75.0-100.0); ABG STANDARD HCO3 27.8 MEQ/L (22.0-26.0); ABG TOTAL CO2 36.1 MEQ/L (23.0-31.0); ABG pH (ARTERIAL) 7.244 UNITS (7.350-7.450)
[2022-05-31] MEDS: methylPREDNISolone 40MG 1ML VIAL IV SCH ×2 (14:47→20:30)
[2022-05-31] MEDS: PANTOPRAZOLE 40MG VIAL IV SCH (14:47)
[2022-06-01] VITALS (9 sets, daily range): BP systolic 97–120; BP diastolic 50–90
[2022-06-01] MEDS ORDERED: NS 1,000 ML IV SCH (00:40)
[2022-06-01] MEDS: methylPREDNISolone 40MG 1ML VIAL IV SCH ×4 (02:25→20:08)
[2022-06-01 05:29] LABS: HEMATOCRIT 42.5 % (42.0-52.0); HEMOGLOBIN 12.5 g/dl (13.5-17.5); MEAN CORPUSCULAR HGB CONC 29.4 g/dl (32.0-36.5); MEAN CORPUSCULAR VOLUME 101.9 fl (80.0-96.0); PLATELET COUNT, AUTOMATED 124 10^3/uL (150-450); RED BLOOD COUNT 4.17 10^6/uL (4.30-6.10); WHITE BLOOD COUNT 13.4 10^3/uL (4.0-10.0)
[2022-06-01 06:02] LABS: ABG BASE EXCESS 4.5 (-2.0-2.0); ABG HCO3 36.1 MEQ/L (22.0-26.0); ABG O2 SATURATION 98.2 % (95.0-99.0); ABG STANDARD HCO3 28.5 MEQ/L (22.0-26.0); ABG TOTAL CO2 39.1 MEQ/L (23.0-31.0)
[2022-06-01 06:02] LABS: BLOOD UREA NITROGEN 33 MG/DL (7-18); CALCIUM LEVEL 9.3 MG/DL (8.8-10.2); CARBON DIOXIDE LEVEL 31 MEQ/L (21-32); CHLORIDE LEVEL 102 MEQ/L (98-107); CREATININE FOR GFR 1.02 MG/DL (0.70-1.30); GLOMERULAR FILTRATION RATE > 60.0 (>49); GLUCOSE, FASTING 173 MG/DL (70-100); POTASSIUM SERUM 5.2 MEQ/L (3.5-5.1); SODIUM LEVEL 136 MEQ/L (136-145)
[2022-06-01 06:06] LABS: ABG PARTIAL PRESSURE CO2 97.1 mmHg (35.0-45.0); ABG pH (ARTERIAL) 7.188 UNITS (7.350-7.450)
[2022-06-01] MEDS: IPRATROPIUM 0.5MG/ALBUTEROL 2.5MG INH SOL UD 3ML (DUONEB) NEB SCH ×4 (08:36→19:15)
[2022-06-01] MEDS: lisinopriL 40MG TAB PO SCH (08:52)
[2022-06-01] MEDS: PANTOPRAZOLE 40MG VIAL IV SCH (08:52)
[2022-06-01] MEDS: cefTRIAXone SOD 1 GM in D5W MINI-BAG PLUS 50 ML IV SCH (11:59)
[2022-06-01] MEDS: AZITHROMYCIN INJ 500 MG, VIAL MATE ADAPTER 1 EACH in NS 250 ML IV SCH (13:49)
[2022-06-01] MEDS: TIOTROPIUM INHALER/CAPSULE (SPIRIVA) INH SCH (15:13)
[2022-06-01] MEDS: SYMBICORT 160/4.5MCG INHALER 6GM INH SCH ×2 (15:13→19:14)
[2022-06-01] MEDS ORDERED: ENOXAPARIN 40MG/0.4ML SYRINGE (J1650 PER 10MG) SC SCH (21:00)
[2022-06-02] VITALS (10 sets, daily range): BP systolic 94–132; BP diastolic 50–84; O2SAT 95
[2022-06-02] MEDS: IPRATROPIUM 0.5MG/ALBUTEROL 2.5MG INH SOL UD 3ML (DUONEB) NEB SCH ×4 (08:00→19:16)
[2022-06-02 08:09] LABS: HEMATOCRIT 46.8 % (42.0-52.0); HEMOGLOBIN 13.9 g/dl (13.5-17.5); MEAN CORPUSCULAR HEMOGLOBIN 29.4 pg (27.0-33.0); MEAN CORPUSCULAR HGB CONC 29.7 g/dl (32.0-36.5); MEAN CORPUSCULAR VOLUME 98.9 fl (80.0-96.0); PLATELET COUNT, AUTOMATED 153 10^3/uL (150-450); RED BLOOD COUNT 4.73 10^6/uL (4.30-6.10); WHITE BLOOD COUNT 17.1 10^3/uL (4.0-10.0)
[2022-06-02] MEDS: predniSONE 50 MG TAB PO SCH (08:15)
[2022-06-02] MEDS: PANTOPRAZOLE 40MG VIAL IV SCH (08:15)
[2022-06-02] MEDS: lisinopriL 40MG TAB PO SCH (08:15)
[2022-06-02] MEDS: SYMBICORT 160/4.5MCG INHALER 6GM INH SCH ×2 (08:27→19:16)
[2022-06-02] MEDS: TIOTROPIUM INHALER/CAPSULE (SPIRIVA) INH SCH (08:27)
[2022-06-02 08:43] LABS: ALBUMIN 2.7 GM/DL (3.2-5.2); ALT/SGPT 11 U/L (12-78); BILIRUBIN,TOTAL 0.2 MG/DL (0.2-1.0); BLOOD UREA NITROGEN 41 MG/DL (7-18); CALCIUM LEVEL 9.9 MG/DL (8.8-10.2); CARBON DIOXIDE LEVEL 33 MEQ/L (21-32); CHLORIDE LEVEL 104 MEQ/L (98-107); CREATININE FOR GFR 1.08 MG/DL (0.70-1.30); GLOMERULAR FILTRATION RATE > 60.0 (>49); GLUCOSE, FASTING 214 MG/DL (70-100); POTASSIUM SERUM 4.9 MEQ/L (3.5-5.1); SODIUM LEVEL 142 MEQ/L (136-145); TOTAL PROTEIN 7.1 GM/DL (6.4-8.2)
[2022-06-02] MEDS ORDERED: METOPROLOL TART 25 MG TABLET PO SCH (09:15)
[2022-06-02] MEDS ORDERED: METOPROLOL TART 25 MG TABLET PO ONE ×2 (10:00→11:50)
[2022-06-02 10:20] LABS: INR 0.95; PROTHROMBIN TIME 13.1 SECONDS (12.7-14.5)
[2022-06-02 10:21] LABS: PARTIAL THROMBOPLASTIN TIME 26.6 SECONDS (25.9-37.0)
[2022-06-02] MEDS: APIXABAN 5 MG TAB (ELIQUIS) PO SCH ×2 (11:43→20:18)
[2022-06-02] MEDS: cefTRIAXone SOD 1 GM in D5W MINI-BAG PLUS 50 ML IV SCH (11:43)
[2022-06-02] MEDS: AZITHROMYCIN INJ 500 MG, VIAL MATE ADAPTER 1 EACH in NS 250 ML IV SCH (12:44)
[2022-06-02] MEDS: METOPROLOL TART 25 MG TABLET PO SCH ×2 (17:44→23:01)
[2022-06-03] VITALS: BP 146/83
[2022-06-03 04:00] VITALS: BP 120/67
[2022-06-03] MEDS: METOPROLOL TART 25 MG TABLET PO SCH ×4 (05:03→23:07)
[2022-06-03] MEDS ORDERED: DIGOXIN INJ 0.5 MG/2 ML AMP (J1160) IV STA (05:33)
[2022-06-03] MEDS ORDERED: SODIUM CHLORIDE 0.9% 1000ML IV ONE (06:00)
[2022-06-03 06:08] LABS: HEMATOCRIT 45.6 % (42.0-52.0); HEMOGLOBIN 13.6 g/dl (13.5-17.5); MEAN CORPUSCULAR HEMOGLOBIN 29.6 pg (27.0-33.0); MEAN CORPUSCULAR HGB CONC 29.8 g/dl (32.0-36.5); MEAN CORPUSCULAR VOLUME 99.1 fl (80.0-96.0); PLATELET COUNT, AUTOMATED 157 10^3/uL (150-450); WHITE BLOOD COUNT 11.9 10^3/uL (4.0-10.0)
[2022-06-03 06:30] LABS: ALBUMIN 2.8 GM/DL (3.2-5.2); ALT/SGPT 16 U/L (12-78); BILIRUBIN,TOTAL 0.3 MG/DL (0.2-1.0); BLOOD UREA NITROGEN 36 MG/DL (7-18); CALCIUM LEVEL 9.4 MG/DL (8.8-10.2); CARBON DIOXIDE LEVEL 39 MEQ/L (21-32); CHLORIDE LEVEL 102 MEQ/L (98-107); CREATININE FOR GFR 0.92 MG/DL (0.70-1.30); GLOMERULAR FILTRATION RATE > 60.0 (>49); GLUCOSE, FASTING 100 MG/DL (70-100); POTASSIUM SERUM 4.8 MEQ/L (3.5-5.1); SODIUM LEVEL 142 MEQ/L (136-145); TOTAL PROTEIN 6.1 GM/DL (6.4-8.2)
[2022-06-03] MEDS: IPRATROPIUM 0.5MG/ALBUTEROL 2.5MG INH SOL UD 3ML (DUONEB) NEB SCH ×4 (07:19→20:00)
[2022-06-03] MEDS: SYMBICORT 160/4.5MCG INHALER 6GM INH SCH ×2 (07:19→20:23)
[2022-06-03] MEDS: TIOTROPIUM INHALER/CAPSULE (SPIRIVA) INH SCH (07:19)
[2022-06-03 07:41] VITALS: BP 114/85
[2022-06-03] MEDS: PANTOPRAZOLE 40MG VIAL IV SCH (09:09)
[2022-06-03] MEDS: APIXABAN 5 MG TAB (ELIQUIS) PO SCH ×2 (09:09→21:34)
[2022-06-03] MEDS: predniSONE 50 MG TAB PO SCH (09:09)
[2022-06-03 09:39] LABS: NT-PRO BNP 3796 PG/ML (<125)
[2022-06-03] MEDS ORDERED: DIGOXIN 0.25 MG TAB PO ONE ×2 (11:00→17:00)
[2022-06-03] MEDS ORDERED: FUROSEMIDE 40MG/4ML VIAL (J1940) IV ONE (11:10)
[2022-06-03 11:30] VITALS: BP 118/62
[2022-06-03] MEDS: cefTRIAXone SOD 1 GM in D5W MINI-BAG PLUS 50 ML IV SCH (11:32)
[2022-06-03 15:32] VITALS: BP 150/60
[2022-06-03 20:00] VITALS: BP 131/76
[2022-06-04] VITALS: BP 146/83
[2022-06-04 04:00] VITALS: BP 154/74
[2022-06-04 05:03] LABS: HEMATOCRIT 44.5 % (42.0-52.0); HEMOGLOBIN 13.6 g/dl (13.5-17.5); MEAN CORPUSCULAR HEMOGLOBIN 30.3 pg (27.0-33.0); MEAN CORPUSCULAR HGB CONC 30.6 g/dl (32.0-36.5); MEAN CORPUSCULAR VOLUME 99.1 fl (80.0-96.0); PLATELET COUNT, AUTOMATED 130 10^3/uL (150-450); RED BLOOD COUNT 4.49 10^6/uL (4.30-6.10); WHITE BLOOD COUNT 9.5 10^3/uL (4.0-10.0)
[2022-06-04 05:35] LABS: ALBUMIN 2.7 GM/DL (3.2-5.2); ALT/SGPT 16 U/L (12-78); BILIRUBIN,TOTAL 0.3 MG/DL (0.2-1.0); BLOOD UREA NITROGEN 27 MG/DL (7-18); CARBON DIOXIDE LEVEL 43 MEQ/L (21-32); CHLORIDE LEVEL 99 MEQ/L (98-107); CREATININE FOR GFR 0.81 MG/DL (0.70-1.30); GLOMERULAR FILTRATION RATE > 60.0 (>49); GLUCOSE, FASTING 143 MG/DL (70-100); POTASSIUM SERUM 4.3 MEQ/L (3.5-5.1); SODIUM LEVEL 142 MEQ/L (136-145); TOTAL PROTEIN 5.8 GM/DL (6.4-8.2)
[2022-06-04 05:56] VITALS: BP 154/74
[2022-06-04] MEDS: METOPROLOL TART 25 MG TABLET PO SCH (05:56)
[2022-06-04] MEDS: SYMBICORT 160/4.5MCG INHALER 6GM INH SCH (07:27)
[2022-06-04] MEDS: TIOTROPIUM INHALER/CAPSULE (SPIRIVA) INH SCH (07:27)
[2022-06-04] MEDS: IPRATROPIUM 0.5MG/ALBUTEROL 2.5MG INH SOL UD 3ML (DUONEB) NEB SCH ×2 (07:28→11:10)
[2022-06-04] MEDS ORDERED: FUROSEMIDE 100MG/10ML VIAL (J1940) IV ONE (08:00)
[2022-06-04] MEDS ORDERED: LEVO1TAB39 PO (08:01)
[2022-06-04] MEDS ORDERED: PRED20TA PO (08:01)
[2022-06-04] MEDS ORDERED: DIGO0.123 PO (08:01)
[2022-06-04] MEDS ORDERED: ELIQ5TAB PO (08:01)
[2022-06-04] MEDS ORDERED: PROB1CAP10 PO (08:01)
[2022-06-04] MEDS ORDERED: METO1TAB87 PO (08:01)
[2022-06-04 08:08] VITALS: BP 122/60
[2022-06-04] MEDS: APIXABAN 5 MG TAB (ELIQUIS) PO SCH (09:47)
[2022-06-04] MEDS: predniSONE 50 MG TAB PO SCH (09:47)
[2022-06-04] MEDS: PANTOPRAZOLE 40MG VIAL IV SCH (09:47)
[2022-06-04 15:09] LABS: BODY FLUID CULTURE Not indicated. (.); LEGIONELLA ANTIGEN URINE Negative (Negative); ORGANISM ID Not indicated. (.); SPECIMEN SOURCE Urine (.); URINE STREP PNEUMONIAE ANTIGEN Negative (Negative)
== END 2022-06-04 11:35 | disposition home or self-care (01) | DRG 177 ==
LOC: M ED 07:15 → M ED INP 11:16 → ENRESERV 11:39 → M ICU 14:40 → M PCU 06-02 22:05
PROVIDERS: ADMIT Internal Medicine Pulmonary Disease; ATTEND Internal Medicine Pulmonary Disease
DX: J15.6 Pneumonia due to other Gram-negative bacteria (principal); J96.21 Acute and chronic respiratory failure with hypoxia; J96.22 Acute and chronic respiratory failure with hypercapnia; J44.0 Chronic obstructive pulmonary disease with (acute) lower respiratory infection; C34.31 Malignant neoplasm of lower lobe, right bronchus or lung; J44.1 Chronic obstructive pulmonary disease with (acute) exacerbation; C77.1 Secondary and unspecified malignant neoplasm of intrathoracic lymph nodes; I10 Essential (primary) hypertension; E78.5 Hyperlipidemia, unspecified; Z66 Do not resuscitate; K21.9 Gastro-esophageal reflux disease without esophagitis; G47.33 Obstructive sleep apnea (adult) (pediatric); I48.91 Unspecified atrial fibrillation; Z85.048 Personal history of other malignant neoplasm of rectum, rectosigmoid junction, and anus; Z92.21 Personal history of antineoplastic chemotherapy; Z90.49 Acquired absence of other specified parts of digestive tract; Z92.3 Personal history of irradiation; Z99.81 Dependence on supplemental oxygen; Z87.891 Personal history of nicotine dependence; Z79.52 Long term (current) use of systemic steroids; Z79.1 Long term (current) use of non-steroidal anti-inflammatories (NSAID); Z79.899 Other long term (current) drug therapy

== ENCOUNTER → 2023-06-30 | Outpatient (CLI) | payer MEDICARE, MEDICAID ==
[~2023-06-30] MED LIST changes: +ATRO2DRO4 PO; +DEXA1CON PO; +DIGO0.123 PO; +ELIQ5TAB PO; +IPRA0.00 INH; +LACT20EL PO; +LEVO1TAB39 PO; +LORA2CON PO; +METO1TAB87 PO; +MORP-69 PO; +MORP1SOL PO; +MORP1SOL4 PO; +PROB1CAP10 PO; +SENN-186 PO; +TREL1AER INH
== END ==
LOC: M PAL 14:05
PROVIDERS: ATTEND Nurse Practitioner Adult Health
DX: C34.31 Malignant neoplasm of lower lobe, right bronchus or lung (principal); C20 Malignant neoplasm of rectum; G89.3 Neoplasm related pain (acute) (chronic); J44.9 Chronic obstructive pulmonary disease, unspecified; K59.00 Constipation, unspecified; M25.561 Pain in right knee; R06.00 Dyspnea, unspecified; R26.81 Unsteadiness on feet; R29.6 Repeated falls; R53.81 Other malaise; R53.83 Other fatigue; R68.82 Decreased libido; R63.0 Anorexia; Z51.5 Encounter for palliative care; Z66 Do not resuscitate; Z79.01 Long term (current) use of anticoagulants; Z79.51 Long term (current) use of inhaled steroids; Z79.52 Long term (current) use of systemic steroids; Z79.891 Long term (current) use of opiate analgesic; Z79.899 Other long term (current) drug therapy; Z99.81 Dependence on supplemental oxygen; Z99.89 Dependence on other enabling machines and devices

== ENCOUNTER → 2023-07-06 | Outpatient (CLI) | payer MEDICARE, MEDICAID | LOC: M PAL 15:58 | PROVIDERS: ATTEND Nurse Practitioner Adult Health | DX: C34.31 Malignant neoplasm of lower lobe, right bronchus or lung (principal); C20 Malignant neoplasm of rectum; G89.3 Neoplasm related pain (acute) (chronic); J44.9 Chronic obstructive pulmonary disease, unspecified; K59.00 Constipation, unspecified; M25.561 Pain in right knee; R06.00 Dyspnea, unspecified; R26.81 Unsteadiness on feet; R29.6 Repeated falls; R53.81 Other malaise; R53.83 Other fatigue; R68.82 Decreased libido; R63.0 Anorexia; Z51.5 Encounter for palliative care; Z66 Do not resuscitate; Z79.01 Long term (current) use of anticoagulants; Z79.51 Long term (current) use of inhaled steroids; Z79.52 Long term (current) use of systemic steroids; Z79.891 Long term (current) use of opiate analgesic; Z79.899 Other long term (current) drug therapy ==